=== PATIENT | female | born 1970 | race Caucasian/White ===

== ENCOUNTER 2016-04-15 19:29 | Inpatient (IN) | payer MEDICAID ==
[~2016-04-15] VITALS: Ht 165.1 cm; Wt 53.8 kg
[2016-04-15 19:31] VITALS: BP 122/90; PULSE 123; RESP 20; TEMP 100; O2SAT 98
--- NOTE | 2016-04-15 20:59 | PD ---
HPI Chief Complaint: GI Complaint Time Seen by Provider: 20:47 Travel History International Travel<30 days: No Contact w/Intl Traveler<30days: No Traveled to known affect area: No History of Present Illness HPI 45-year-old female came to the emergency room with history of fever, chills, vomiting and diarrhea that has been going on for past couple days. Patient has been taking Tylenol and ibuprofen. She is unable to hold anything down and says her whole body hurts. No known sick contacts. She has not received a flu vaccine this year. She claims to be otherwise healthy. She smokes cigarettes. Patient had a temperature of 100 and heart rate of 125 in triage. She seems in moderate distress and lethargic. PFSH Past Medical History Narrative Medical List of her past medical history is reviewed from the nursing note. Anxiety: Yes Depression: Yes Cancer: No Cardiovascular Problems: No Diminished Hearing: No Endocrine: No Genitourinary: Yes (UTI and STD in the past) Immune Disorder: No Musculoskeletal: No Neurologic: No Respiratory: No Immunizations Current: Yes Tetanus Vaccination: < 5 Years Influenza Vaccination: No ?: Not : 4 Para: 3 Miscarriage: 1 Past Surgical History Section: Yes (X4) Gynecologic Surgery: Yes (C- SECTIONS) Hysterectomy: Yes Pacemaker: No Other Surgery: Yes Social History Alcohol Use: Yes (OCC) Tobacco Use: Yes (1PPD) Substance Use: No Allergies-Medications (Allergen,Severity, Reaction): Coded Allergies: Penicillin (Verified Allergy, Severe, "My mother stated I swelled up and couldn't breathe", 04/15/16) Comments List of her allergies reviewed from the nursing note. Reported Meds & Prescriptions Reported Meds & Active Scripts Active Ibuprofen 400 Mg Tab 400 Mg PO Q8H PRN Narrative Medication List of her home medications reviewed from the nursing note. Review of Systems Except as stated in HPI: all other systems reviewed are Neg Physical Exam Narrative GENERAL: Lethargic, moderate distress SKIN: Warm and dry. HEAD: Atraumatic. Normocephalic. EYES: Pupils equal and round. No scleral icterus. No injection or drainage. ENT: No nasal bleeding or discharge. Dry mucous members NECK: Trachea midline. No JVD. CARDIOVASCULAR: Regular rate and rhythm. Tachycardia. No murmur appreciated. RESPIRATORY: No accessory muscle use. Clear to auscultation. Breath sounds equal bilaterally. GASTROINTESTINAL: Abdomen soft, non-tender, nondistended. Hepatic and splenic margins not palpable. MUSCULOSKELETAL: No obvious deformities. No clubbing. No cyanosis. No edema. NEUROLOGICAL: Somnolent. No obvious cranial nerve deficits. Motor grossly within normal limits. Normal speech. PSYCHIATRIC: Appropriate mood and affect; insight and judgment normal. Data Data Last Documented VS Vital Signs Date Time Temp Pulse Resp B/P Pulse Ox O2 Delivery O2 Flow Rate FiO2 04/15/16 23:06 100 18 120/75 97 Room Air 04/15/16 21:48 99.0 Orders Complete Blood Count With Diff (04/15/16 21:06) Comprehensive Metabolic Panel (04/15/16 21:06) Lactic Acid Sepsis Protocol (04/15/16 21:06) Urinalysis - C+S If Indicated (04/15/16 21:06) Influenzae A/B Antigen (04/15/16 21:06) Blood Culture (04/15/16 21:06) Chest, Single Ap (04/15/16 21:06) Blood Glucose (04/15/16 21:06) Ecg Monitoring (04/15/16 21:06) Iv Access Insert/Monitor (04/15/16 21:06) Oximetry (04/15/16 21:06) Oxygen Administration (04/15/16 21:06) Sodium Chlor 0.9% 1000 Ml Inj (Ns 1000 M (04/15/16 21:06) Sodium Chlor 0.9% 1000 Ml Inj (Ns 1000 M (04/15/16 21:06) Aztreonam Inj (Azactam Inj) (04/15/16 22:15) Vancomycin Inj (Vancomycin Inj) (04/15/16 22:15) Ct Abd/Pel W/O Iv Contrast (04/15/16 ) Potassium Chlor 20 Meq Premix (Kcl 20 Me (04/15/16 23:00) Admit To Inpatient (04/15/16 ) Vital Signs (Adult) Q4H (04/15/16 23:11) Activity Oob With Assistance (04/15/16 23:11) ^ Territory Manager General Sales / Telemetry .CONTINUOUS (04/15/16 23:11) Diet Heart Healthy (04/16/16 Breakfast) Sodium Chloride 0.9% Flush (Ns Flush) (04/15/16 23:15) Sodium Chloride 0.9% Flush (Ns Flush) (04/16/16 09:00) Comprehensive Metabolic Panel (04/16/16 06:00) Complete Blood Count With Diff (04/16/16 06:00) Case Management Consult (04/15/16 23:11) Naloxone Inj (Narcan Inj) (04/15/16 23:15) Inpatient Certification (04/15/16 ) Admit Order (Ed Use Only) (04/15/16 23:19) Levofloxacin 750 Mg Premix Inj (Levaquin (04/16/16 00:00) Metronidazole 500 Mg Inj (Flagyl 500 Mg (04/16/16 00:00) Labs Laboratory Tests Test 04/15/16 04/15/16 20:35 22:35 White Blood Count 1.4 TH/MM3 Red Blood Count 3.80 MIL/MM3 Hemoglobin 14.0 GM/DL Hematocrit 41.6 % Mean Corpuscular Volume 109.5 FL Mean Corpuscular Hemoglobin 36.8 PG Mean Corpuscular Hemoglobin 33.6 % Concent Red Cell Distribution Width 19.0 % Platelet Count 114 TH/MM3 Mean Platelet Volume 7.1 FL Neutrophils (%) (Auto) 54.8 % Lymphocytes (%) (Auto) 42.0 % Monocytes (%) (Auto) 2.5 % Eosinophils (%) (Auto) 0.3 % Basophils (%) (Auto) 0.4 % Neutrophils # (Auto) 0.8 TH/MM3 Lymphocytes # (Auto) 0.6 TH/MM3 Monocytes # (Auto) 0.0 TH/MM3 Eosinophils # (Auto) 0.0 TH/MM3 Basophils # (Auto) 0.0 TH/MM3 CBC Comment AUTO DIFF Differential Total Cells 100 Counted Neutrophils % (Manual) 52 % Band Neutrophils % 12 % Lymphocytes % 35 % Monocytes % 1 % Neutrophils # (Manual) 0.9 TH/MM3 Differential Comment FINAL DIFF MANUAL Platelet Estimate LOW Platelet Morphology Comment NORMAL Urine Color ELIAS Urine Turbidity CLEAR Urine pH 6.0 Urine Specific [place] GREATER THAN 1.035 Urine Protein 100 mg/dL Urine Glucose (UA) NEG mg/dL Urine Ketones NEG mg/dL Urine Occult Blood MOD Urine Nitrite NEG Urine Bilirubin NEG Urine Leukocyte Esterase TRACE Urine RBC 3-5 /hpf Urine WBC 0-2 /hpf Urine Squamous Epithelial 0-5 /hpf Cells Urine Bacteria NONE /hpf Microscopic Urinalysis Comment CULT NOT INDICATED Lactic Acid Level 1.4 mmol/L Sodium Level 133 MEQ/L Potassium Level 3.0 MEQ/L Chloride Level 98 MEQ/L Carbon Dioxide Level 25.5 MEQ/L Anion Gap 10 MEQ/L Blood Urea Nitrogen 9 MG/DL Creatinine 0.47 MG/DL Estimat Glomerular Filtration 145 ML/MIN Rate Random Glucose 111 MG/DL Calcium Level 8.1 MG/DL Total Bilirubin 0.6 MG/DL Aspartate Amino Transf 36 U/L (AST/SGOT) Alanine Aminotransferase 35 U/L (ALT/SGPT) Alkaline Phosphatase 40 U/L Total Protein 7.0 GM/DL Albumin 2.8 GM/DL [facility] Medical Decision Making Medical Screen Exam Complete: Yes Emergency Medical Condition: Yes Medical Record Reviewed: Yes Differential Diagnosis Sepsis, influenza, dehydration, pneumonia, UTI Narrative Course 10:49 PM blood test results of back and patient has significant leukopenia with ANC of 770. Her platelet count is depressed to some extent as well. When compared to her previous labs these seem to be new changes. Chest x-rays within normal limit and her urine analysis seemed normal as well. Patient was started on sepsis protocol for fluid and antibiotics. Patient has low potassium and I will replace that with IV potassium. Patient requires admission. Rest of her chemistry is still pending. Critical Care Narrative Aggregate critical care time was 45 minutes. Time to perform other separately billable procedures was not included in the critical care time. My time did not include minutes spent treating any other patients simultaneously or on activities that did not directly contribute to the patient's treatment. The services I provided to this patient were to treat and/or prevent clinically significant deterioration that could result in: Sepsis, sepsis protocol, dehydration, leukopenia I provided critical care services requiring my management, as noted below: Chart data review, documentation time, medication orders and management, vital sign assessments/reviewing monitor data, ordering and reviewing lab tests, ordering and interpreting/reviewing x-rays and diagnostic studies, care of the patient and discussion of the patient with the admitting physicians. Procedures EKG Prior to Arrival: No Sepsis Criteria SIRS Criteria (2 or more): Heart rate over 90, WBC > 22211, < 4000 or > 10% bands Diagnosis Primary Impression: Sepsis Qualified Code: A41.9 - Sepsis, due to unspecified organism Additional Impressions: Leukopenia Qualified Code: D72.819 - Leukopenia, unspecified type Fever Qualified Code: R50.9 - Fever, unspecified fever cause Dehydration Admitting Information Admitting Physician Requests: Admit Referrals: Primary Care Physician 1 week Scripts Ibuprofen 400 Mg Dax103 Mg PO Q8H PRN (pain) #20 TAB Ref 0 Prov:Lauren Wright MD 04/15/16 Lauren Wright MD Apr 15, 2016 20:59
[2016-04-15] MEDS ORDERED: SODIUM CHLOR 0.9% 1000 ML INJ 1,000 ML IV ONE (21:06)
[2016-04-15] MEDS ORDERED: SODIUM CHLOR 0.9% 1000 ML INJ 800 ML IV ONE (21:06)
[2016-04-15 21:09] VITALS: RESP 18; O2SAT 98
[2016-04-15 21:48] VITALS: BP 116/79; PULSE 105; RESP 18; TEMP 99; O2SAT 100
[2016-04-15 21:48] LABS: GLUCOSE,URINE NEG (NEG); KETONE, URINE NEG (NEG); NITRITE,URINE NEG (NEG)
[2016-04-15 21:52] LABS: AUTOMATED NEUTROPHIL # 0.8 TH/MM3 (1.8-7.7); BASOPHIL % 0.4 % (0.0-2.0); EOSINOPHIL % 0.3 % (0.0-4.0); HEMATOCRIT 41.6 % (35.0-46.0); LYMPHOCYTE # 0.6 TH/MM3 (1.0-4.8); MEAN CELL VOLUME 109.5 FL (80.0-100.0); MEAN CORPUSCULAR HEMOGLOBIN 36.8 PG (27.0-34.0); MEAN CORPUSCULAR HGB CONC 33.6 % (32.0-36.0); MONO % 2.5 % (0.0-8.0); NEUT % 54.8 % (16.0-70.0); PLATELET COUNT 114 TH/MM3 (150-450); WHITE BLOOD COUNT 1.4 TH/MM3 (4.0-11.0)
[2016-04-15] MEDS ORDERED: IBUP400T20 PO (21:52)
[2016-04-15 21:53] LABS: HEMO FLAGS AUTO DIFF
[2016-04-15 21:57] LABS: BLOOD, URINE MOD (NEG)
[2016-04-15 21:58] LABS: COMMENT (UR) CULT NOT INDICATED; CULTURE IF INDICATED CULT NOT INDICATED; SQUAMOUS EPITHELIAL CELL URINE 0-5 /hpf (0-5); URINE COLOR AMBER (YELLW/STRAW); WBC, URINE 0-2 /hpf (0-5)
--- NOTE | 2016-04-15 22:03 | RADHPO ---
EXAM DATE/TIME: 04/15/2016 21:55 [facility] COMPARISON: No previous studies available for comparison. INDICATIONS : Cough, chest discomfort for 2 days MEDICAL HISTORY : None. SURGICAL HISTORY : None. ENCOUNTER: Initial ACUITY: 2 days PAIN SCORE: 0/10 LOCATION: Bilateral chest FINDINGS: A single view of the chest demonstrates the lungs to be symmetrically aerated without evidence of mas s, infiltrate or effusion. The cardiomediastinal contours are unremarkable. Osseous structures are intact. CONCLUSION: No acute disease. Mike Bustillo MD on April 15, 2016 at 22:01 Board Certified Radiologist. This report was verified electronically.
[2016-04-15 22:10] LABS: BANDS 12 % (0-6); NEUTROPHIL # MANUAL DIFF 0.9 TH/MM3 (1.8-7.7); POLYS (SEG NEUTROPHILS) 52 % (16-70); WBC DIFF SAMPLE 100
[2016-04-15 22:11] LABS: PLATELET ESTIMATE SMEAR LOW (NORMAL); PLATELET MORPHOLOGY NORMAL (NORMAL); SCAN/DIFF FINAL DIFF MANUAL
[2016-04-15] MEDS ORDERED: VANCOMYCIN INJ 1,000 MG in SODIUM CHLOR 0.9% 250 ML INJ 250 ML IV ONE (22:15)
[2016-04-15] MEDS ORDERED: AZTREONAM INJ 2,000 MG in SODIUM CHLORIDE 0.9% INJ 100 ML IV ONE (22:15)
--- NOTE | 2016-04-15 22:36 | RADHPO ---
EXAM DATE/TIME: 04/15/2016 22:16 [facility] COMPARISON: CT ABDOMEN & PELVIS W/O CONTRAST, April 22, 2015, 13:33. INDICATIONS : Vomiting, diarrhea and abdominal pain. ORAL CONTRAST: No oral contrast ingested. RADIATION DOSE: 6.38 CTDIvol (mGy) MEDICAL HISTORY : Gallbladder disease. SURGICAL HISTORY : section. Hysterectomy. ENCOUNTER: Initial ACUITY: 2 days PAIN SCALE: 7/10 LOCATION: Bilateral lower quadrant TECHNIQUE: Volumetric scanning of the abdomen and pelvis was performed. Using automated exposure control and ad justment of the mA and/or kV according to patient size, radiation dose was kept as low as reasonably achievable to obtain optimal diagnostic quality images. FINDINGS: LOWER LUNGS: The visualized lower lungs are clear. LIVER: Homogeneous density without lesion. There is no dilation of the biliary tree. No calcified gallston es. SPLEEN: Normal size without lesion. PANCREAS: Within normal limits. KIDNEYS: Normal in size and shape. There is no mass, stone, or hydronephrosis. ADRENAL GLANDS: Within normal limits. VASCULAR: There is no aortic aneurysm. BOWEL/MESENTERY: There is wall thickening of the colon more notable involving the ascending transverse and portions of descending colon.. No perforation or abscess.. There is no free intraperitoneal air or fluid. ABDOMINAL WALL: Within normal limits. RETROPERITONEUM: There is no lymphadenopathy. BLADDER: No wall thickening or mass. REPRODUCTIVE: Within normal limits. INGUINAL: There is no lymphadenopathy or hernia. MUSCULOSKELETAL: Within normal limits for patient age. CONCLUSION: 1. Wall thickening of portions of the colon which can be seen with colitis. No perforation or abscess . 2. No renal calculi or hydronephrosis. Mike Bustillo MD on April 15, 2016 at 22:32 Board Certified Radiologist. This report was verified electronically.
[2016-04-15 22:47] LABS: CHLORIDE 98 MEQ/L (98-107); SODIUM (NA) 133 MEQ/L (136-145)
[2016-04-15 22:51] LABS: ANION GAP 10 MEQ/L (5-15); BICARBONATE 25.5 MEQ/L (21.0-32.0); BLOOD UREA NITROGEN 9 MG/DL (7-18)
[2016-04-15 22:54] LABS: ALT (GPT) 35 U/L (10-53); AST (GOT) 36 U/L (15-37); GLOMERULAR FILTRATION RATE 145 ML/MIN (>89)
[2016-04-15 22:56] LABS: TOTAL BILIRUBIN ADULT 0.6 MG/DL (0.2-1.0)
[2016-04-15 22:57] LABS: ALKALINE PHOSPHATASE 40 U/L (45-117)
[2016-04-15] MEDS ORDERED: POTASSIUM CHLOR 20 MEQ PREMIX 100 ML IV ONE (23:00)
[2016-04-15 23:06] VITALS: BP 120/75; PULSE 100; RESP 18; O2SAT 97
[2016-04-15] MEDS ORDERED: SODIUM CHLORIDE 0.9% FLUSH 5 ML FLUSH FLUSH PRN (23:15)
[2016-04-15] MEDS ORDERED: NALOXONE HCL 0.4 MG/ML AMP IV PRN (23:15)
[2016-04-16] VITALS (23 sets, daily range): BP systolic 103–141; BP diastolic 61–91; PULSE 80–99; RESP 12–38; TEMP 97.7–99; O2SAT 98–100
[2016-04-16] MEDS ORDERED: LEVOFLOXACIN 750 MG PREMIX INJ 150 ML IV SCH
[2016-04-16] MEDS: metroNIDAZOLE 500 MG INJ 100 ML IV SCH ×4 (02:19→17:40)
[2016-04-16 05:29] LABS: AUTOMATED NEUTROPHIL # 0.5 TH/MM3 (1.8-7.7); EOSINOPHIL % 0.5 % (0.0-4.0); HEMATOCRIT 34.6 % (35.0-46.0); LYMPH % 47.8 % (9.0-44.0); LYMPHOCYTE # 0.6 TH/MM3 (1.0-4.8); MEAN CELL VOLUME 109.3 FL (80.0-100.0); MEAN CORPUSCULAR HEMOGLOBIN 36.8 PG (27.0-34.0); MEAN CORPUSCULAR HGB CONC 33.7 % (32.0-36.0); MONO % 3.1 % (0.0-8.0); NEUT % 47.6 % (16.0-70.0); PLATELET COUNT 99 TH/MM3 (150-450); RED BLOOD COUNT 3.17 MIL/MM3 (4.00-5.30); RED CELL DISTRIBUTION WIDTH 18.9 % (11.6-17.2); WHITE BLOOD COUNT 1.1 TH/MM3 (4.0-11.0)
[2016-04-16] MEDS: ACETAMINOPHEN/HYDROcodone 325 MG/5 MG TAB PO PRN ×2 (05:29→17:27)
[2016-04-16 05:32] LABS: HEMO FLAGS AUTO DIFF
[2016-04-16 05:45] LABS: CHLORIDE 102 MEQ/L (98-107); POTASSIUM 3.2 MEQ/L (3.5-5.1); SODIUM (NA) 136 MEQ/L (136-145)
[2016-04-16 05:49] LABS: ANION GAP 10 MEQ/L (5-15); BICARBONATE 23.6 MEQ/L (21.0-32.0); BLOOD UREA NITROGEN 9 MG/DL (7-18)
[2016-04-16 05:52] LABS: ALT (GPT) 31 U/L (10-53); AST (GOT) 33 U/L (15-37); GLOMERULAR FILTRATION RATE 156 ML/MIN (>89)
[2016-04-16 05:53] LABS: TOTAL BILIRUBIN ADULT 0.5 MG/DL (0.2-1.0)
[2016-04-16 05:54] LABS: BANDS 17 % (0-6); NEUTROPHIL # MANUAL DIFF 0.6 TH/MM3 (1.8-7.7); OVALOCYTES 1+ (NORMAL); PLATELET ESTIMATE SMEAR LOW (NORMAL); PLATELET MORPHOLOGY NORMAL (NORMAL); POLYS (SEG NEUTROPHILS) 41 % (16-70); SCAN/DIFF FINAL DIFF MANUAL; WBC DIFF SAMPLE 100
[2016-04-16 05:55] LABS: ALKALINE PHOSPHATASE 36 U/L (45-117)
[2016-04-16] MEDS ORDERED: Vancomycin Consult Pharmacy 1 EA OTHER SCH (11:00)
--- NOTE | 2016-04-16 11:06 | HHI.HP ---
[facility] Service [facility] Primary Care Physician No Primary Care Physician Admission Diagnosis sepsis, leukopenia, fever, dehydration Diagnoses: Chief Complaint: Weight loss and diarrhea and subjective fever Travel History International Travel<30 Days: No Contact w/Intl Traveler <30 Da: No Traveled to Known Affected Are: No Sepsis Criteria SIRS Criteria (2 or more): Heart rate over 90, WBC > 98697, < 4000 or > 10% bands Severe Sepsis (+one): Hypotension Criteria Outcome: Meets sepsis criteria History of Present Illness Patient is a 45-year-old female with a history which is rather unremarkable. She does come to the hospital with subjective fevers and chills. About 4 days of nausea and vomiting and loose watery stools. The patient is came on suddenly and was associated with chills and weakness. She doesn't recall eating anything particular but noted that her stool was quite watery and had turned green. She tried Pepto-Bismol without any relief. She came to the emergency room for further evaluation noted now to be pancytopenic and tachycardic. There are signs and symptoms of sepsis and her CT abdomen pelvis which was the emergency room does show colitis. Patient denies any intestinal troubles in the past without sick contacts and reports about a 20 pound weight loss over the last several months. For these reasons the patient has been admitted to the hospital. She required quite a bit IV resuscitation and her blood pressure and heart rate improved. She was started on IV antibiotics. Review of Systems Constitutional: DENIES: Diaphoretic episodes, Fatigue, Fever, Weight gain, Weight loss, Chills, Dizziness, Change in appetite, Night Sweats Endocrine: DENIES: Abnorml menstrual pattern, Heat/cold intolerance, Polydipsia , Polyuria, Polyphagia Eyes: DENIES: Blurred vision, Diplopia, Eye inflammation, Eye pain, Vision loss , Photosensitivity, Double Vision Ears, nose, mouth, throat: DENIES: Tinnitus, Hearing loss, Vertigo, Nasal discharge, Oral lesions, Throat pain, Hoarseness, Ear Pain, Running Nose, Epistaxis, Sinus Pain, Toothache, Odynophagia Respiratory: DENIES: Apneas, Cough, Snoring, Wheezing, Hemoptysis, Sputum production, Shortness of breath Cardiovascular: DENIES: Chest pain, Palpitations, Syncope, Dyspnea on Exertion , PND, Lower Extremity Edema, Orthopnea, Claudication Gastrointestinal: COMPLAINS OF: Abdominal pain, Diarrhea, Nausea, Vomiting, DENIES: Black stools, Bloody stools, Constipation, Difficulty Swallowing, Anorexia Genitourinary: DENIES: Abnormal vaginal bleeding, Dysmenorrhea, Dyspareunia, Sexual dysfunction, Urinary frequency, Urinary incontinence, Urgency, Hematuria , Dysuria, Nocturia, Vaginal discharge Musculoskeletal: DENIES: Joint pain, Muscle aches, Stiffness, Joint Swelling, Back pain, Neck pain Integumentary: DENIES: Abnormal pigmentation, Pruritus, Rash, Nail changes, Breast masses, Breast skin changes, Nipple discharge Hematologic/lymphatic: DENIES: Bruising, Lymphadenopathy Immunologic/allergic: DENIES: Eczema, Urticaria Neurologic: DENIES: Abnormal gait, Headache, Localized weakness, Paresthesias, Seizures, Speech Problems, Tremor, Poor Balance Psychiatric: DENIES: Anxiety, Confusion, Mood changes, Depression, Hallucinations, Agitation, Suicidal Ideation, Homicidal Ideation, Delusions Past Family Social History Past Medical History denies Blood transfusion, remote IVD Past Surgical History C/S x4 Hysterectomy Reported Medications none Allergies: Coded Allergies: Penicillin (Verified Allergy, Severe, "My mother stated I swelled up and couldn't breathe", 04/15/16) Active Ordered Medications Reviewed and the medical record Family History Unknown patient is adopted Social History Patient smokes a pack a day, no alcohol, unemployed but previously worked in the [employer], no recent travel Physical Exam Vital Signs Vital Signs Date Time Temp Pulse Resp B/P Pulse Ox O2 Delivery O2 Flow Rate FiO2 04/16/16 10:00 92 04/16/16 10:00 84 13 103/64 100 04/16/16 09:00 88 04/16/16 09:00 92 38 129/76 98 04/16/16 08:00 97.7 88 29 113/75 100 04/16/16 08:00 90 04/16/16 07:22 99.0 86 18 104/61 100 Room Air 04/16/16 06:22 18 04/16/16 06:10 86 18 117/80 99 Room Air 04/16/16 06:10 18 04/16/16 04:01 18 04/16/16 04:01 95 18 115/75 100 Room Air 04/16/16 03:03 91 18 130/83 98 Room Air 04/16/16 01:51 18 04/16/16 01:51 96 18 121/82 98 Room Air 04/16/16 00:16 94 18 118/78 99 Room Air 04/15/16 23:06 100 18 120/75 97 Room Air 04/15/16 23:06 18 04/15/16 21:48 99.0 105 18 116/79 100 Room Air 04/15/16 21:09 98 Room Air 04/15/16 21:09 18 98 Room Air 04/15/16 20:48 18 04/15/16 19:31 100.0 123 20 122/90 98 Physical Exam GENERAL: This is a cachectic, well-developed patient, complaining of diarrhea SKIN: No rashes, ecchymoses or lesions. Cool and dry. HEAD: Atraumatic. Normocephalic. No temporal or scalp tenderness. EYES: Pupils equal round and reactive. Extraocular motions intact. No scleral icterus. No injection or drainage. ENT: Nose without bleeding, purulent drainage or septal hematoma. Throat without erythema, tonsillar hypertrophy or exudate. Uvula midline. Airway patent. NECK: Trachea midline. No JVD or lymphadenopathy. Supple, nontender, no meningeal signs. CARDIOVASCULAR: Regular rate and rhythm without murmurs, gallops, or rubs. RESPIRATORY: Clear to auscultation. Breath sounds equal bilaterally. No wheezes , rales, or rhonchi. GASTROINTESTINAL: Abdomen soft, non-tender, nondistended. No hepato-splenomegaly , or palpable masses. No guarding. MUSCULOSKELETAL: Extremities without clubbing, cyanosis, or edema. No joint tenderness, effusion, or edema noted. No calf tenderness. Negative Homans sign bilaterally. NEUROLOGICAL: Awake and alert. Cranial nerves II through XII intact. Motor and sensory grossly within normal limits. Five out of 5 muscle strength in all muscle groups. Normal speech. Laboratory Laboratory Tests Test 04/15/16 04/15/16 04/16/16 20:35 22:35 05:17 White Blood Count 1.4 1.1 Red Blood Count 3.80 3.17 Hemoglobin 14.0 11.7 Hematocrit 41.6 34.6 Mean Corpuscular Volume 109.5 109.3 Mean Corpuscular Hemoglobin 36.8 36.8 Mean Corpuscular Hemoglobin 33.6 33.7 Concent Red Cell Distribution Width 19.0 18.9 Platelet Count 114 99 Mean Platelet Volume 7.1 6.8 Neutrophils (%) (Auto) 54.8 47.6 Lymphocytes (%) (Auto) 42.0 47.8 Monocytes (%) (Auto) 2.5 3.1 Eosinophils (%) (Auto) 0.3 0.5 Basophils (%) (Auto) 0.4 1.0 Neutrophils # (Auto) 0.8 0.5 Lymphocytes # (Auto) 0.6 0.6 Monocytes # (Auto) 0.0 0.0 Eosinophils # (Auto) 0.0 0.0 Basophils # (Auto) 0.0 0.0 CBC Comment AUTO DIFF AUTO DIFF Differential Total Cells 100 100 Counted Neutrophils % (Manual) 52 41 Band Neutrophils % 12 17 Lymphocytes % 35 39 Monocytes % 1 3 Neutrophils # (Manual) 0.9 0.6 Differential Comment FINAL DIFF FINAL DIFF MANUAL MANUAL Platelet Estimate LOW LOW Platelet Morphology Comment NORMAL NORMAL Urine Color ELIAS Urine Turbidity CLEAR Urine pH 6.0 Urine Specific [place] GREATER THAN 1.035 Urine Protein 100 Urine Glucose (UA) NEG Urine Ketones NEG Urine Occult Blood MOD Urine Nitrite NEG Urine Bilirubin NEG Urine Leukocyte Esterase TRACE Urine RBC 3-5 Urine WBC 0-2 Urine Squamous Epithelial 0-5 Cells Urine Bacteria NONE Microscopic Urinalysis Comment CULT NOT INDICATED Lactic Acid Level 1.4 Sodium Level 133 136 Potassium Level 3.0 3.2 Chloride Level 98 102 Carbon Dioxide Level 25.5 23.6 Anion Gap 10 10 Blood Urea Nitrogen 9 9 Creatinine 0.47 0.44 Estimat Glomerular Filtration 145 156 Rate Random Glucose 111 107 Calcium Level 8.1 7.7 Total Bilirubin 0.6 0.5 Aspartate Amino Transf 36 33 (AST/SGOT) Alanine Aminotransferase 35 31 (ALT/SGPT) Alkaline Phosphatase 40 36 Total Protein 7.0 6.2 Albumin 2.8 2.5 Ovalocytes 1+ Date/Time Procedure Status Source Growth 04/15/16 20:40 Aerobic Blood Culture Received Blood Peripheral Pending 04/15/16 20:40 Anaerobic Blood Culture Received Blood Peripheral Pending 04/15/16 20:35 Influenza Types A,B Antigen ([facility]) - Final Complete Nasal Aspirate NEGATIVE FOR FLU A AND B ANTIGEN.... Result Diagram: 04/16/16 0517 04/16/16 0517 Imaging Last Impressions Chest X-Ray 04/15/16 2106 Signed Impressions: Service Date/Time: Friday, April 15, 2016 21:55 - CONCLUSION: No acute disease. Mike Bustillo MD Abdomen/Pelvis CT 04/15/16 0000 Signed Impressions: Service Date/Time: Friday, April 15, 2016 22:16 - CONCLUSION: 1. Wall thickening of portions of the colon which can be seen with colitis. No perforation or abscess. 2. No renal calculi or hydronephrosis. Mike Bustillo MD Septic Shock Reassessment Heart: Regular rate and rhythm Lungs: Clear Skin: Warm Peripheral Pulses: Bounding Right Radial Bounding Left Radial Bounding Right Popliteal Bounding Left Popliteal Bounding Right Dorsalis Pedis Bounding Left Dorsalis Pedis Bounding Right Posterior Tibial Bounding Left Posterior Tibial Assessment and Plan Problem List: (1) Sepsis ICD Code: A41.9 Status: Acute Plan: from colitis? BC pending urine neg CXR neg (2) Colitis ICD Code: K52.9 Status: Acute Plan: Continue with Levaquin and Flagyl, will add vancomycin due to neutropenia Colitis on CT scan Stool studies pending (3) Pancytopenia ICD Code: D61.818 Status: Acute Plan: hiv pending neutropenic precautions d/w paitent Assessment and Plan Plan of care to determine by Hospital course Code Status Full code Discussed Condition With Patient, CONSTRUCTION CONSULTANT Physician Certification 2 Midnight Certification Type: Admission for Inpatient Services Order for Inpatient Services The services are ordered in accordance with Medicare regulations or non- Medicare payer requirements, as applicable. In the case of services not specified as inpatient-only, they are appropriately provided as inpatient services in accordance with the 2-midnight benchmark. Estimated LOS (days): 4 4 days is the estimated time the patient will need to remain in the hospital, assuming treatment plan goals are met and no additional complications. Post-Hospital Plan: Home Problem Qualifiers (1) Sepsis: Qualified Code: A41.9 - Sepsis, due to unspecified organism Nieves Mejia MD Apr 16, 2016 11:06
[2016-04-16] MEDS: SODIUM CHLOR 0.9% 1000 ML INJ 1,000 ML IV SCH ×2 (11:27→22:29)
[2016-04-16] MEDS: SODIUM CHLORIDE 0.9% FLUSH 5 ML FLUSH FLUSH SCH ×2 (11:28→21:24)
[2016-04-16] MEDS ORDERED: POTASSIUM PHOSPHATE INJ 30 MMOL in SODIUM CHLOR 0.9% 250 ML INJ 250 ML IV ONE (12:00)
[2016-04-16] MEDS ORDERED: VANCOMYCIN INJ 1,000 MG in SODIUM CHLOR 0.9% 250 ML INJ 250 ML IV SCH (12:00)
[2016-04-16] MEDS ORDERED: CHLORHEXIDINE GLUCONATE 2 % 1 PACK (2 CLOTHS)(extra cloths) TOP PRN (13:45)
[2016-04-16 16:44] LABS: C. DIFF EPI 027 PRESUMPTIVE NEGATIVE (NEGATIVE); C. DIFF TOXIN PCR NEGATIVE (NEGATIVE)
[2016-04-16] MEDS ORDERED: TEMAZEPAM 7.5 MG CAP PO ONE (22:15)
[2016-04-17] VITALS (18 sets, daily range): BP systolic 104–147; BP diastolic 64–91; PULSE 71–98; RESP 11–33; TEMP 97.5–98.9; O2SAT 97–100
[2016-04-17] MEDS: metroNIDAZOLE 500 MG INJ 100 ML IV SCH ×5 (00:08→23:54)
[2016-04-17] MEDS: VANCOMYCIN INJ 1,000 MG in SODIUM CHLOR 0.9% 250 ML INJ 250 ML IV SCH ×3 (01:40→20:18)
[2016-04-17] MEDS: ACETAMINOPHEN/HYDROcodone 325 MG/5 MG TAB PO PRN ×3 (02:09→19:46)
[2016-04-17] MEDS: LEVOFLOXACIN 750 MG PREMIX INJ 150 ML IV SCH (03:11)
[2016-04-17] MEDS: CHLORHEXIDINE GLUCONATE 2 % 1 PACK (2 CLOTHS)(taper/protocol) TOP SCH (03:13)
[2016-04-17 04:42] LABS: AUTOMATED NEUTROPHIL # 0.7 TH/MM3 (1.8-7.7); BASOPHIL % 0.8 % (0.0-2.0); EOSINOPHIL % 1.5 % (0.0-4.0); HEMATOCRIT 32.5 % (35.0-46.0); LYMPH % 45.7 % (9.0-44.0); LYMPHOCYTE # 0.7 TH/MM3 (1.0-4.8); MEAN CELL VOLUME 109.7 FL (80.0-100.0); MEAN CORPUSCULAR HEMOGLOBIN 36.7 PG (27.0-34.0); MEAN CORPUSCULAR HGB CONC 33.5 % (32.0-36.0); MONO % 4.9 % (0.0-8.0); NEUT % 47.1 % (16.0-70.0); PLATELET COUNT 109 TH/MM3 (150-450); RED BLOOD COUNT 2.96 MIL/MM3 (4.00-5.30); RED CELL DISTRIBUTION WIDTH 19.5 % (11.6-17.2); WHITE BLOOD COUNT 1.5 TH/MM3 (4.0-11.0)
[2016-04-17 04:48] LABS: HEMO FLAGS AUTO DIFF; POTASSIUM 3.3 MEQ/L (3.5-5.1)
[2016-04-17 04:52] LABS: BICARBONATE 24.4 MEQ/L (21.0-32.0); MAGNESIUM 2.3 MG/DL (1.5-2.5)
[2016-04-17 05:08] LABS: BANDS 6 % (0-6); EOSINOPHILS 1 % (0-4); NEUTROPHIL # MANUAL DIFF 0.8 TH/MM3 (1.8-7.7); POLYS (SEG NEUTROPHILS) 47 % (16-70); WBC DIFF SAMPLE 100
[2016-04-17 05:09] LABS: OVALOCYTES 1+ (NORMAL); PLATELET ESTIMATE SMEAR LOW (NORMAL); PLATELET MORPHOLOGY NORMAL (NORMAL); SCAN/DIFF FINAL DIFF MANUAL
[2016-04-17] MEDS: SODIUM CHLORIDE 0.9% FLUSH 5 ML FLUSH FLUSH SCH ×2 (09:30→19:48)
[2016-04-17] MEDS: SODIUM CHLOR 0.9% 1000 ML INJ 1,000 ML IV SCH (09:31)
[2016-04-17] MEDS ORDERED: INFLUENZA VIRUS VACCINE (QUADRIVALENT) 0.5 ML SYR IM ONE (10:00)
[2016-04-17] MEDS ORDERED: POTASSIUM PHOSPHATE INJ 30 MMOL in SODIUM CHLOR 0.9% 250 ML INJ 250 ML IV ONE (10:00)
[2016-04-17] MEDS ORDERED: PHARMACY ORDERED LAB XX ONE (11:45)
--- NOTE | 2016-04-17 11:49 | HHI.PR ---
Subjective Remarks Patient seen and evaluated today in follow-up for colitis. Stool cultures, blood cultures are negative. HIV is negative. Patient very tearful over psychosocial issues. Discussed with JANITOR Objective Vitals Vital Signs Date Time Temp Pulse Resp B/P Pulse Ox O2 Delivery O2 Flow Rate FiO2 04/17/16 08:00 78 14 127/78 98 04/17/16 08:00 82 04/17/16 07:00 98.4 86 11 132/81 98 04/17/16 07:00 86 04/17/16 06:10 80 27 119/69 100 04/17/16 06:00 81 04/17/16 05:10 86 12 114/68 98 04/17/16 05:00 71 04/17/16 04:00 98.3 90 31 106/64 100 04/17/16 04:00 77 04/17/16 03:09 17 04/17/16 03:00 84 13 113/76 100 04/17/16 03:00 81 04/17/16 02:09 86 23 132/86 100 04/17/16 02:00 86 04/17/16 01:00 98 04/17/16 00:00 98.4 90 16 147/81 100 04/17/16 00:00 96 04/16/16 23:11 90 25 127/81 100 04/16/16 23:00 87 04/16/16 22:00 84 14 127/79 100 04/16/16 22:00 99 04/16/16 21:00 80 21 112/69 100 04/16/16 21:00 83 04/16/16 20:00 98.5 80 27 118/74 100 04/16/16 20:00 81 04/16/16 19:00 84 34 141/86 04/16/16 19:00 87 04/16/16 18:00 86 12 135/91 100 04/16/16 18:00 86 04/16/16 17:00 90 15 112/74 100 04/16/16 16:00 90 04/16/16 16:00 98.0 90 16 127/89 100 04/16/16 15:00 90 27 108/70 100 04/16/16 14:00 88 17 109/73 100 04/16/16 14:00 88 04/16/16 13:00 88 04/16/16 13:00 88 17 122/74 100 04/16/16 12:00 84 04/16/16 12:00 98.9 84 15 110/72 100 I/O 04/16/16 04/16/16 04/16/16 04/17/16 04/17/16 04/17/16 07:00 15:00 23:00 07:00 15:00 23:00 Intake Total 2350 ml 100 ml 3253 ml 1590 ml Output Total 1500 ml 700 ml Balance 2350 ml 100 ml 1753 ml 890 ml Intake Oral 1320 ml 720 ml IV Total 2350 ml 100 ml 1933 ml 870 ml Output Stool Total 1500 ml 700 ml # Voids 1 9 4 1 # Bowel Movements 6 1 Result Diagram: 04/17/1642104/17/16421 Imaging Last Impressions Chest X-Ray 04/15/162105 Signed Impressions: Service Date/Time: Friday, April 15, 2016 21:55 - CONCLUSION: No acute disease. Mike Bustillo MD Abdomen/Pelvis CT 04/15/16 0000 Signed Impressions: Service Date/Time: Friday, April 15, 2016 22:16 - CONCLUSION: 1. Wall thickening of portions of the colon which can be seen with colitis. No perforation or abscess. 2. No renal calculi or hydronephrosis. Mike Bustillo MD Objective Remarks GENERAL: This is a thin, well-developed patient, in no apparent distress. CARDIOVASCULAR: Regular rate and rhythm without murmurs, gallops, or rubs. RESPIRATORY: Clear to auscultation. Breath sounds equal bilaterally. No wheezes , rales, or rhonchi. GASTROINTESTINAL: Abdomen soft, non-tender, nondistended. Normal active bowel sounds MUSCULOSKELETAL: Extremities without clubbing, cyanosis, or edema. NEURO: Alert & Oriented x4 to person, place, time, situation. Moves all ext x4 A/P Problem List: (1) Sepsis ICD Code: A41.9 Status: Acute Plan: from colitis? BC neg urine neg CXR neg (2) Colitis Status: Acute Plan: Continue with Levaquin and Flagyl, will add vancomycin due to neutropenia Colitis on CT scan Stool studies negative so far, some leukocytosis Patient will need outpatient endoscopy once inflammation is improved (3) Pancytopenia ICD Code: D61.818 Status: Acute Plan: hiv negative neutropenic precautions d/w patient if no improvement will consult id Assessment and Plan reg diet med surg bed Discharge Planning when counts better Problem Qualifiers (1) Sepsis: Qualified Code: A41.9 - Sepsis, due to unspecified organism Nieves Mejia MD Apr 17, 2016 11:49
[2016-04-18] VITALS (7 sets, daily range): BP systolic 114–149; BP diastolic 67–86; PULSE 16–82; RESP 12–22; TEMP 97.5–98.9; O2SAT 98–100
[2016-04-18] MEDS ORDERED: diphenhydrAMINE HCL 25 MG CAP PO PRN (00:15)
[2016-04-18] MEDS: CHLORHEXIDINE GLUCONATE 2 % 1 PACK (2 CLOTHS)(taper/protocol) TOP SCH (03:32)
[2016-04-18] MEDS: LEVOFLOXACIN 750 MG PREMIX INJ 150 ML IV SCH (03:32)
[2016-04-18] MEDS: metroNIDAZOLE 500 MG INJ 100 ML IV SCH (05:19)
[2016-04-18] MEDS: VANCOMYCIN INJ 1,000 MG in SODIUM CHLOR 0.9% 250 ML INJ 250 ML IV SCH (05:19)
[2016-04-18 09:16] LABS: AUTOMATED NEUTROPHIL # 0.8 TH/MM3 (1.8-7.7); BASOPHIL % 1.9 % (0.0-2.0); EOSINOPHIL % 1.4 % (0.0-4.0); HEMATOCRIT 34.4 % (35.0-46.0); LYMPH % 48.5 % (9.0-44.0); LYMPHOCYTE # 1.1 TH/MM3 (1.0-4.8); MEAN CELL VOLUME 110.2 FL (80.0-100.0); MEAN CORPUSCULAR HEMOGLOBIN 37.1 PG (27.0-34.0); MEAN CORPUSCULAR HGB CONC 33.7 % (32.0-36.0); MONO % 8.5 % (0.0-8.0); NEUT % 39.7 % (16.0-70.0); PLATELET COUNT 146 TH/MM3 (150-450); RED BLOOD COUNT 3.12 MIL/MM3 (4.00-5.30); RED CELL DISTRIBUTION WIDTH 19.1 % (11.6-17.2); WHITE BLOOD COUNT 2.1 TH/MM3 (4.0-11.0)
[2016-04-18 09:28] LABS: HEMO FLAGS AUTO DIFF
[2016-04-18] MEDS: SODIUM CHLORIDE 0.9% FLUSH 5 ML FLUSH FLUSH SCH ×2 (09:53→20:32)
[2016-04-18] MEDS: SULFAMETHOXAZOLE-TRIMETHOPRIM DS 800-160 MG TAB PO SCH ×2 (09:53→20:31)
[2016-04-18 10:01] LABS: BANDS 8 % (0-6); BASOPHILS 1 % (0-2); EOSINOPHILS 1 % (0-4); NEUTROPHIL # MANUAL DIFF 0.7 TH/MM3 (1.8-7.7); POLYS (SEG NEUTROPHILS) 27 % (16-70); WBC DIFF SAMPLE 100
[2016-04-18 10:02] LABS: OVALOCYTES 1+ (NORMAL); PLATELET ESTIMATE SMEAR LOW (NORMAL); PLATELET MORPHOLOGY NORMAL (NORMAL); ROULEAUX PRESENT (NORMAL); SCAN/DIFF FINAL DIFF MANUAL
[2016-04-18] MEDS: ACETAMINOPHEN/HYDROcodone 325 MG/5 MG TAB PO PRN ×2 (13:25→20:31)
--- NOTE | 2016-04-18 14:48 | HHI.PR ---
Subjective Remarks Patient seen today in follow-up for salmonellosis. Leukopenia improved. Stool more formed. Patient complaining of buttocks pain but is more ambulatory today Objective Vitals Vital Signs Date Time Temp Pulse Resp B/P Pulse Ox O2 Delivery O2 Flow Rate FiO2 04/18/16 12:00 77 04/18/16 11:28 98.5 80 12 114/67 100 04/18/16 09:42 97.9 76 14 130/77 100 04/18/16 04:00 97.5 79 16 125/75 100 04/18/16 00:00 98.1 82 18 125/70 98 04/17/16 20:00 97.5 80 24 117/79 100 04/17/16 16:00 98.4 79 14 109/76 97 I/O 04/17/16 04/17/16 04/17/16 04/18/16 04/18/16 04/18/16 07:00 15:00 23:00 07:00 15:00 23:00 Intake Total 1590 ml 2526 ml 319 ml Output Total 700 ml 1 ml Balance 890 ml 2526 ml 318 ml Intake Oral 720 ml 1200 ml 60 ml IV Total 870 ml 1326 ml 259 ml Output Stool Total 700 ml 1 ml # Voids 4 1 7 3 # Bowel Movements 1 7 2 Result Diagram: 04/18/16 0847 04/17/16 0422 Objective Remarks GENERAL: This is a thin, well-developed patient, in no apparent distress. CARDIOVASCULAR: Regular rate and rhythm without murmurs, gallops, or rubs. RESPIRATORY: Clear to auscultation. Breath sounds equal bilaterally. No wheezes , rales, or rhonchi. GASTROINTESTINAL: Abdomen soft, non-tender, nondistended. Normal active bowel sounds MUSCULOSKELETAL: Extremities without clubbing, cyanosis, or edema. NEURO: Alert & Oriented x4 to person, place, time, situation. Moves all ext x4 A/P Problem List: (1) Sepsis ICD Code: A41.9 Status: Acute Plan: from salmonellosis Continue Bactrim Improved (2) Pancytopenia ICD Code: D61.818 Status: Acute Plan: Improving hiv negative neutropenic precautions d/w patient Assessment and Plan add heating pad Discharge Planning when counts better Problem Qualifiers (1) Sepsis: Qualified Code: A41.9 - Sepsis, due to unspecified organism Nieves Mejia MD Apr 18, 2016 14:48
[2016-04-18] MEDS: diphenhydrAMINE HCL 50 MG CAP PO PRN (20:31)
[2016-04-18] MEDS ORDERED: PHARMACY ORDERED LAB XX ONE (21:45)
[2016-04-19 01:24] VITALS: BP 104/69; PULSE 74; RESP 12; TEMP 98.5; O2SAT 99
[2016-04-19] MEDS: CHLORHEXIDINE GLUCONATE 2 % 1 PACK (2 CLOTHS)(taper/protocol) TOP SCH (04:00)
[2016-04-19] MEDS: ACETAMINOPHEN/HYDROcodone 325 MG/5 MG TAB PO PRN ×3 (06:27→17:16)
[2016-04-19 08:00] VITALS: BP 109/82; PULSE 85; RESP 20; TEMP 96.6; O2SAT 99
[2016-04-19 09:24] LABS: AUTOMATED NEUTROPHIL # 1.2 TH/MM3 (1.8-7.7); BASOPHIL % 0.4 % (0.0-2.0); EOSINOPHIL # 0.1 TH/MM3 (0-0.4); EOSINOPHIL % 1.9 % (0.0-4.0); HEMATOCRIT 33.8 % (35.0-46.0); LYMPH % 46.1 % (9.0-44.0); LYMPHOCYTE # 1.3 TH/MM3 (1.0-4.8); MEAN CORPUSCULAR HEMOGLOBIN 37.8 PG (27.0-34.0); MEAN CORPUSCULAR HGB CONC 34.7 % (32.0-36.0); MONO % 10.6 % (0.0-8.0); PLATELET COUNT 174 TH/MM3 (150-450); RED CELL DISTRIBUTION WIDTH 18.8 % (11.6-17.2); WHITE BLOOD COUNT 2.9 TH/MM3 (4.0-11.0)
[2016-04-19 09:37] LABS: HEMO FLAGS AUTO DIFF
[2016-04-19] MEDS: SULFAMETHOXAZOLE-TRIMETHOPRIM DS 800-160 MG TAB PO SCH ×2 (09:44→21:37)
[2016-04-19] MEDS: SODIUM CHLORIDE 0.9% FLUSH 5 ML FLUSH FLUSH SCH ×2 (09:45→21:37)
[2016-04-19 10:04] LABS: POTASSIUM 3.7 MEQ/L (3.5-5.1)
[2016-04-19 10:09] LABS: BICARBONATE 25.8 MEQ/L (21.0-32.0)
[2016-04-19 10:21] LABS: BANDS 6 % (0-6); EOSINOPHILS 2 % (0-4); NEUTROPHIL # MANUAL DIFF 1.2 TH/MM3 (1.8-7.7); POLYS (SEG NEUTROPHILS) 34 % (16-70); WBC DIFF SAMPLE 100
[2016-04-19 10:22] LABS: OVALOCYTES 1+ (NORMAL); PLATELET ESTIMATE SMEAR NORMAL (NORMAL); PLATELET MORPHOLOGY NORMAL (NORMAL); ROULEAUX PRESENT (NORMAL); SCAN/DIFF AUTO DIFF CONFIRMED
--- NOTE | 2016-04-19 10:36 | HHI.PR ---
Subjective Remarks Follow-up for sepsis from salmonella, pancytopenia. Patient admits to abdominal pain radiating to the back states it is a 7/10 mostly over the back currently, and indicates need for more frequent pain medication. She denies any vomiting. States her stool is more formed than before and dark brown, no blood. Denies any fevers. Objective Vitals Vital Signs Date Time Temp Pulse Resp B/P Pulse Ox O2 Delivery O2 Flow Rate FiO2 04/19/16 08:00 96.6 85 20 109/82 99 04/19/16 07:34 18 04/19/16 01:24 98.5 74 12 104/69 99 04/18/16 20:00 98.9 78 22 149/86 100 04/18/16 16:45 98.1 16 12 121/68 99 04/18/16 12:00 77 04/18/16 11:28 98.5 80 12 114/67 100 I/O 04/18/16 04/18/16 04/18/16 04/19/16 04/19/16 04/19/16 07:00 15:00 23:00 07:00 15:00 23:00 Intake Total 319 ml 1230 ml Output Total 1 ml Balance 318 ml 1230 ml Intake Oral 60 ml 1110 ml IV Total 259 ml 120 ml Output Stool Total 1 ml # Voids 3 6 # Bowel Movements 2 8 Result Diagram: 04/19/1682704/19/16827 Objective Remarks GENERAL: Thin patient in no apparent distress. SKIN: Warm and dry. CARDIOVASCULAR: Regular rate and rhythm. RESPIRATORY: No accessory muscle use. Clear to auscultation. Breath sounds equal bilaterally. GASTROINTESTINAL: Normoactive bowel sounds 4. Abdomen soft, nondistended. Generalized abdominal tenderness, worse over the epigastric region. BACK: No tenderness over the lower thoracic back. NEUROLOGICAL: Awake and alert. Motor grossly within normal limits. Normal speech. PSYCHIATRIC: Appropriate mood and affect; insight and judgment normal. Urinary Catheter: No Vascular Central Line Catheter: No A/P Problem List: (1) Sepsis ICD Code: A41.9 Status: Acute (2) Salmonellosis ICD Code: A02.9 Status: Acute (3) Pancytopenia ICD Code: D61.818 Status: Acute (4) Elevated lipase ICD Code: R74.8 Status: Acute Assessment and Plan (1) Sepsis Improved Due to salmonellosis Continue Bactrim (2) Pancytopenia Improving HIV negative Neutropenic precautions Monitor CBC (3) Elevated lipase level, possible pancreatitis Mild elevation at 459 and patient has epigastric pain radiating to the back. Although CT scan revealed no pancreatic abnormalities, she may have mild pancreatitis. Patient is eating 100% of meals. Start Low-fat diet. Continue [place]. Will increase frequency from every 6 to every 4 hours, but will avoid parenteral medication due to a history of IVDU per H&P. Repeat lipase level in the am. Discussed with Dr. Mejia, attending. Problem Qualifiers (1) Sepsis: Qualified Code: A41.9 - Sepsis, due to unspecified organism Layla Tineo Apr 19, 2016 10:36
[2016-04-19 11:57] VITALS: BP 133/82; PULSE 80; RESP 20; TEMP 98.1; O2SAT 100
[2016-04-19 16:00] VITALS: BP 128/85; PULSE 98; RESP 20; TEMP 96.5; O2SAT 99
[2016-04-19] MEDS: NICOTINE 14 MG/24 HR PATCH TD SCH (17:45)
[2016-04-19 20:00] VITALS: BP 135/89; PULSE 90; RESP 18; TEMP 96.6; O2SAT 96
[2016-04-19] MEDS: diphenhydrAMINE HCL 50 MG CAP PO PRN (23:30)
[2016-04-20] VITALS: BP 125/86; PULSE 84; RESP 20; TEMP 97.4; O2SAT 98
[2016-04-20 04:00] VITALS: BP 121/78; PULSE 80; RESP 16; TEMP 96.9; O2SAT 99
[2016-04-20] MEDS: CHLORHEXIDINE GLUCONATE 2 % 1 PACK (2 CLOTHS)(taper/protocol) TOP SCH (04:00)
[2016-04-20 08:00] VITALS: BP 113/80; PULSE 89; RESP 16; TEMP 98.2; O2SAT 98
[2016-04-20] MEDS: SULFAMETHOXAZOLE-TRIMETHOPRIM DS 800-160 MG TAB PO SCH (08:04)
[2016-04-20] MEDS: ACETAMINOPHEN/HYDROcodone 325 MG/5 MG TAB PO PRN (08:04)
[2016-04-20] MEDS: NICOTINE 14 MG/24 HR PATCH TD SCH (08:05)
[2016-04-20] MEDS: SODIUM CHLORIDE 0.9% FLUSH 5 ML FLUSH FLUSH SCH (08:08)
[2016-04-20 08:25] LABS: AUTOMATED NEUTROPHIL # 1.9 TH/MM3 (1.8-7.7); BASOPHIL % 0.6 % (0.0-2.0); EOSINOPHIL # 0.1 TH/MM3 (0-0.4); EOSINOPHIL % 1.7 % (0.0-4.0); HEMATOCRIT 36.2 % (35.0-46.0); LYMPH % 47.4 % (9.0-44.0); LYMPHOCYTE # 2.1 TH/MM3 (1.0-4.8); MEAN CELL VOLUME 109.2 FL (80.0-100.0); MEAN CORPUSCULAR HEMOGLOBIN 37.6 PG (27.0-34.0); MEAN CORPUSCULAR HGB CONC 34.4 % (32.0-36.0); NEUT % 43.3 % (16.0-70.0); PLATELET COUNT 177 TH/MM3 (150-450); RED BLOOD COUNT 3.32 MIL/MM3 (4.00-5.30); RED CELL DISTRIBUTION WIDTH 19.3 % (11.6-17.2); WHITE BLOOD COUNT 4.4 TH/MM3 (4.0-11.0)
[2016-04-20 08:37] LABS: HEMO FLAGS AUTO DIFF
[2016-04-20] MEDS ORDERED: REMOVE OLD NICODERM (NICOTINE) PATCH TD SCH (09:00)
[2016-04-20 09:09] LABS: SCAN/DIFF AUTO DIFF CONFIRMED
--- NOTE | 2016-04-20 10:57 | HHI.DCPOC ---
Discharge Care Plan Diagnosis: (1) Salmonellosis (2) Pancytopenia Goals to Promote Your Health * To prevent worsening of your condition and complications * To maintain your health at the optimal level Directions to Meet Your Goals Take your medications as prescribed Follow your dietary instruction Follow activity as directed Keep your appointments as scheduled Take your immunizations and boosters as scheduled If your symptoms worsen call your PCP, if no PCP go to Urgent Care Center or Emergency Room Smoking is Dangerous to Your Health. Avoid second hand smoke Call the 24-hour hour crisis hotline for domestic abuse at Nieves Mejia MD Apr 20, 2016 10:57
[2016-04-20] MEDS ORDERED: BACT800T5 PO (10:59)
[2016-04-20] MEDS ORDERED: HYDR-3516 PO (11:00)
--- NOTE | 2016-04-20 11:02 | HHI.DS ---
Discharge Summary Admission Date Apr 15, 2016 at 23:20 Discharge Date: Apr 20, 2016 Admitting Diagnosis sepsis, leukopenia, fever, dehydration (1) Sepsis ICD Code: A41.9 (2) Salmonellosis ICD Code: A02.9 (3) Pancytopenia ICD Code: D61.818 (4) Elevated lipase ICD Code: R74.8 Procedures none Brief History - From Admission Patient is a 45-year-old female with a history which is rather unremarkable. She does come to the hospital with subjective fevers and chills. About 4 days of nausea and vomiting and loose watery stools. The patient is came on suddenly and was associated with chills and weakness. She doesn't recall eating anything particular but noted that her stool was quite watery and had turned green. She tried Pepto-Bismol without any relief. She came to the emergency room for further evaluation noted now to be pancytopenic and tachycardic. There are signs and symptoms of sepsis and her CT abdomen pelvis which was the emergency room does show colitis. Patient denies any intestinal troubles in the past without sick contacts and reports about a 20 pound weight loss over the last several months. For these reasons the patient has been admitted to the hospital. She required quite a bit IV resuscitation and her blood pressure and heart rate improved. She was started on IV antibiotics. CBC/BMP: 04/20/16 0800 04/19/16 0828 Significant Findings Laboratory Tests Test 04/17/16 04/18/16 04/19/16 04/20/16 12:52 08:47 08:28 08:00 Vancomycin Level Trough 2.7 MCG/ML (5.0-10.0) White Blood Count 2.1 TH/MM3 2.9 TH/MM3 (4.0-11.0) (4.0-11.0) Red Blood Count 3.12 MIL/MM3 3.10 MIL/MM3 3.32 MIL/MM3 (4.00-5.30) (4.00-5.30) (4.00-5.30) Hematocrit 34.4 % 33.8 % (35.0-46.0) (35.0-46.0) Mean Corpuscular Volume 110.2 FL 109.0 FL 109.2 FL (80.0-100.0) (80.0-100.0) (80.0-100.0) Mean Corpuscular Hemoglobin 37.1 PG 37.8 PG 37.6 PG (27.0-34.0) (27.0-34.0) (27.0-34.0) Red Cell Distribution Width 19.1 % 18.8 % 19.3 % (11.6-17.2) (11.6-17.2) (11.6-17.2) Platelet Count 146 TH/MM3 (150-450) Lymphocytes (%) (Auto) 48.5 % 46.1 % 47.4 % (9.0-44.0) (9.0-44.0) (9.0-44.0) Monocytes (%) (Auto) 8.5 % (0.0-8.0) 10.6 % (0.0-8.0) Neutrophils # (Auto) 0.8 TH/MM3 1.2 TH/MM3 (1.8-7.7) (1.8-7.7) Band Neutrophils % 8 % (0-6) Lymphocytes % 55 % (9-44) 51 % (9-44) Neutrophils # (Manual) 0.7 TH/MM3 1.2 TH/MM3 (1.8-7.7) (1.8-7.7) Platelet Estimate LOW (NORMAL) Basophilic Stippling MOD (NORMAL) FAINT (NORMAL) Ovalocytes 1+ (NORMAL) 1+ (NORMAL) Rouleau PRESENT PRESENT (NORMAL) (NORMAL) Blood Urea Nitrogen 6 MG/DL (7-18) Random Glucose 108 MG/DL (74-106) Calcium Level 7.7 MG/DL (8.5-10.1) Lipase 459 U/L 481 U/L (73-393) (73-393) Mean Platelet Volume 6.6 FL (7.0-11.0) Imaging Last Impressions Chest X-Ray 04/15/16 5675 Signed Impressions: Service Date/Time: Friday, April 15, 2016 21:55 - CONCLUSION: No acute disease. Mike Bustillo MD Abdomen/Pelvis CT 04/15/16 0000 Signed Impressions: Service Date/Time: Friday, April 15, 2016 22:16 - CONCLUSION: 1. Wall thickening of portions of the colon which can be seen with colitis. No perforation or abscess. 2. No renal calculi or hydronephrosis. Mike Bustillo MD PE at Discharge GENERAL: Thin patient in no apparent distress. SKIN: Warm and dry. CARDIOVASCULAR: Regular rate and rhythm. RESPIRATORY: No accessory muscle use. Clear to auscultation. Breath sounds equal bilaterally. GASTROINTESTINAL: Normoactive bowel sounds 4. Abdomen soft, nondistended. Generalized abdominal tenderness, worse over the epigastric region. BACK: No tenderness over the lower thoracic back. NEUROLOGICAL: Awake and alert. Motor grossly within normal limits. Normal speech. PSYCHIATRIC: Appropriate mood and affect; insight and judgment normal. Pt update on day of discharge Patient seen today in follow-up for discharge planning. Doing better. Abdominal pain is resolved. Tolerating current antibiotics. Counts are improved. Discharge plans discussed with her she is agreeable Hospital Course Patient is a 45-year-old female with minimal past medical history but did come to the hospital for abdominal pain. She does have colitis and salmonellosis. Patient's treated for same. She also was leukopenic and neutropenic. This resolved with medical treatment of her medical issues. Workup was negative otherwise. Patient had some mild abdominal discomfort with elevated lipase however this improved clinically and the patient had only mild elevation her lipase. Pt Condition on Discharge: Good Discharge Disposition: Discharge Home Discharge Time: > 30 minutes Discharge Instructions DIET: Follow Instructions for: As Tolerated, No Restrictions Activities you can perform: Regular-No Restrictions New Medications: Hydrocodone-Acetaminophen (Hydrocodone-Acetaminophen) 5-325 mg Tab 1 TAB PO Q4H PRN pain >5 #20 TAB Sulfamethoxazole-Trimethoprim (Bactrim DS) 800-160 Mg Tab 1 TAB PO Q12HR Infection #10 TAB Discontinued Medications: Ibuprofen (Ibuprofen) 400 Mg Tab 400 MG PO Q8H PRN pain #20 Ref 0 TAB Nieves Mejia MD Apr 20, 2016 11:02
== END 2016-04-20 12:21 | disposition home or self-care (01) | DRG 872 ==
LOC: PHED 19:29 → PHEDA 23:20 → PHEDH 04-16 03:20 → PHICU 04-16 07:45 → PH3A 04-18 23:00
PROVIDERS: ADMIT Hospitalist; ATTEND Hospitalist
DX: A02.1 Salmonella sepsis (principal); D61.818 Other pancytopenia; Z68.1 Body mass index [BMI] 19.9 or less, adult; A02.0 Salmonella enteritis; K52.9 Noninfective gastroenteritis and colitis, unspecified; E86.0 Dehydration; R63.4 Abnormal weight loss; R74.8 Abnormal levels of other serum enzymes; F17.210 Nicotine dependence, cigarettes, uncomplicated; F32.9 Major depressive disorder, single episode, unspecified; F41.9 Anxiety disorder, unspecified; Z88.0 Allergy status to penicillin; Z23 Encounter for immunization
CPT/HCPCS: 71010; 74176; 80048; 80053; 80202; 81001; 83605; 83690; 83735; 85007; 85025; 85027; 86703; 87040; 87205; 87328; 87329; 87493; 87506; 87641; 87804; 90471; 90686; 96361; 96365; G0008; J1956; J3370; J3480; J7030; J7050; Q0163; Q2038

== ENCOUNTER 2016-08-12 11:29 | Emergency (ER) | payer MEDICAID ==
[~2016-08-12] VITALS: Ht 165.1 cm; Wt 59.0 kg
[~2016-08-12 11:29] MED LIST: BACT800T5 PO; HYDR-3516 PO
[2016-08-12 11:32] VITALS: BP 139/102; PULSE 97; RESP 16; TEMP 98.4; O2SAT 99
--- NOTE | 2016-08-12 12:13 | PD ---
HPI Chief Complaint: Skin Problem Time Seen by Provider: 11:40 Travel History International Travel<30 days: No Contact w/Intl Traveler<30days: No Traveled to known affect area: No History of Present Illness HPI 46-year-old female presents to the emergency room for evaluation of 2 itchy bumps on the top of her scalp that have been present for the past year. Patient states they flares up occasionally. She states the only thing that relieves her itchiness is Benadryl and ice. She also applies topical cortisone cream and her friend's Bactroban ointment. She has been to a database development project manager multiple times and had steroid injections but was unhappy because the symptoms persisted. She is requesting to see infectious disease specialist and/or a referral to [facility] or [facility]. She states her symptoms started one year ago when she bumped her head on a nest and she has had flares ever since. She states that this causes her extreme anxiety and she looses sleep. She has been to multiple people and believes that it is infected. She reports chills but no objective fevers. Denies chronic medical conditions or being on any medications. PFSH Past Medical History Anxiety: Yes Depression: Yes Cancer: No Cardiovascular Problems: No Diabetes: No Diminished Hearing: No Endocrine: No Gastrointestinal Disorders: Yes GERD: No Genitourinary: No Immune Disorder: No Musculoskeletal: No Neurologic: No Psychiatric: No Reproductive: No Respiratory: No Immunizations Current: Yes Thyroid Disease: No Ulcer: No ?: Not : 4 Para: 3 Miscarriage: 1 Past Surgical History Section: Yes (X4) Genitourinary Surgery: Yes (CHOLEYCYSTECTOMY) Gynecologic Surgery: Yes (C-SECTIONS X4, PARTIAL HYSTERECTOMY) Hysterectomy: Yes Pacemaker: No Other Surgery: Yes Social History Alcohol Use: Yes (OCC) Tobacco Use: No (FORMER) Substance Use: No Allergies-Medications (Allergen,Severity, Reaction): Coded Allergies: Penicillin (Verified Allergy, Severe, "My mother stated I swelled up and couldn't breathe", 08/12/16) Reported Meds & Prescriptions Reported Meds & Active Scripts Active Vistaril (Hydroxyzine Pamoate) 50 Mg Cap 50 Mg PO Q8HR Review of Systems Except as stated in HPI: all other systems reviewed are Neg Physical Exam Narrative GENERAL: Well-nourished, well-developed female in no acute distress. Afebrile. Ambulatory. SKIN: Focused skin assessment warm/dry. There is a 3 mm skin color maculopapular lesion on the top of the patient's scalp. There is no erythema, edema, drainage, slight excoriation. It is not tender. HEAD: Normocephalic. EYES: No scleral icterus. No injection or drainage. NECK: Supple, trachea midline. No JVD or lymphadenopathy. CARDIOVASCULAR: Regular rate and rhythm without murmurs, gallops, or rubs. RESPIRATORY: Breath sounds equal bilaterally. No accessory muscle use. MUSCULOSKELETAL: No cyanosis, or edema. Data Data Last Documented VS Vital Signs Date Time Temp Pulse Resp B/P Pulse Ox O2 Delivery O2 Flow Rate FiO2 08/12/16 11:32 98.4 97 16 139/102 99 MDM Medical Decision Making Medical Screen Exam Complete: Yes Emergency Medical Condition: Yes Medical Record Reviewed: Yes Differential Diagnosis Abrasion versus abscess versus mole versus psoriasis Narrative Course 46-year-old female presents to the emergency room for evaluation of an itchy lesion to the top of her scalp for the past year. She states intermittently flares up. She has been to a database development project manager for was unhappy with the results of treatment. Patient is requesting to see infectious disease specialist for referral to a tertiary hospital for her lesions. Vital signs stable. Physical exam reveals a 3 mm skin color maculopapular lesion on the top of the patient's scalp. There is no erythema, edema, drainage but there is slight excoriation. It is not tender. Patient goes on to say that the hair surrounding the area is typing element machine operator in color and shows a picture on her phone to prove this. The lightness in color is due to the lighting of the picture. Upon physical exam, there is no change in her hair color. Patient then discusses that her job began to perform surveillance on her and eventually fired her because of this lesion. I suspect underlying psychological etiology. Patient was reassured there is no evidence of infection in that she does not need to be seen by infectious disease specialist, admitted, or sent to a tertiary care center. She was told to follow up with a database development project manager for excision of the lesion as it causes her so much distress. She was given Vistaril in the meantime for itchiness and anxiety and told to return to the ER for worsening symptoms. She understands and agrees to plan. Diagnosis Primary Impression: Skin lesion Referrals: [facility] Reconciliation Manager Primary Care Physician Patient Instructions: General Instructions Additional Instructions: Rest and drink plenty of fluids. Take Vistaril as directed, as needed for itchiness and anxiety. Follow-up with a database development project manager. Return to the emergency room for worsening symptoms. Med/Other Pt SpecificInfo: Prescription(s) given Scripts Hydroxyzine Pamoate (Vistaril)50 Mg Cap50 Mg PO Q8HR #21 CAP Ref 0 Prov:Lauren Wright MD 08/12/16 Disposition: 01 DISCHARGE HOME Condition: Stable Khushi Mohamud August 12, 2016 12:13
[2016-08-12] MEDS ORDERED: VIST50CA PO (12:14)
== END 2016-08-12 12:24 | disposition home or self-care (01) ==
LOC: PHEFT 11:29
DX: L98.9 Disorder of the skin and subcutaneous tissue, unspecified (principal); L29.9 Pruritus, unspecified; F41.9 Anxiety disorder, unspecified; F32.9 Major depressive disorder, single episode, unspecified; Z88.0 Allergy status to penicillin; Z87.891 Personal history of nicotine dependence
CPT/HCPCS: 99283

== ENCOUNTER 2016-10-13 12:27 | Emergency (ER) | payer MEDICAID ==
[~2016-10-13] VITALS: Ht 165.1 cm; Wt 59.4 kg
[~2016-10-13 12:27] MED LIST changes: -BACT800T5 PO; -HYDR-3516 PO; +VIST50CA PO
[2016-10-13 12:30] VITALS: BP 133/85; PULSE 100; RESP 16; TEMP 98.1; O2SAT 100
[2016-10-13 13:41] LABS: BLOOD, URINE NEG (NEG); GLUCOSE,URINE NEG (NEG); KETONE, URINE NEG (NEG); NITRITE,URINE NEG (NEG)
--- NOTE | 2016-10-13 13:47 | PD ---
HPI Chief Complaint: Mechanical Manufacturing Technician Problem/Complaint Time Seen by Provider: 13:23 Travel History International Travel<30 days: No Contact w/Intl Traveler<30days: No Traveled to known affect area: No History of Present Illness HPI C/O 4 DAYS OF YELLOW GREEN VAG DISCHARGE, STATES MONOGAMOUS UNPROTECTED INTERCOURSE, I ADVISED THAT SHE ALSO GO TO HEALTH DEPT OR HER PCP FOR HIV AND HEP B/C TESTING WELL.... PFSH Past Medical History Anxiety: Yes Depression: Yes Cancer: No Cardiovascular Problems: No Diabetes: No Diminished Hearing: No Endocrine: No Gastrointestinal Disorders: Yes GERD: No Genitourinary: No Immune Disorder: No Musculoskeletal: No Neurologic: No Psychiatric: No Reproductive: No Respiratory: No Immunizations Current: Yes Thyroid Disease: No Ulcer: No ?: Not : 4 Para: 3 Miscarriage: 1 Past Surgical History Section: Yes (X4) Genitourinary Surgery: Yes (CHOLEYCYSTECTOMY) Gynecologic Surgery: Yes (C-SECTIONS X4, PARTIAL HYSTERECTOMY) Hysterectomy: Yes Pacemaker: No Other Surgery: Yes Social History Alcohol Use: Yes (OCC) Tobacco Use: No (FORMER) Substance Use: No Allergies-Medications (Allergen,Severity, Reaction): Coded Allergies: Penicillin (Verified Allergy, Severe, "My mother stated I swelled up and couldn't breathe", 10/13/16) Reported Meds & Prescriptions Reported Meds & Active Scripts Active Zofran Odt (Ondansetron Odt) 4 Mg Tab 4 Mg SL Q6HR PRN Ultram (Tramadol HCl) 50 Mg Tab 50 Mg PO Q4H PRN Diflucan (Fluconazole) 150 Mg Tab 150 Mg PO ONCE Ciprofloxacin (Ciprofloxacin HCl) 500 Mg Tab 500 Mg PO BID Review of Systems Except as stated in HPI: all other systems reviewed are Neg Gastrointestinal: Positive: Abdominal Pain Genitourinary: Positive: Pelvic Pain, Discharge Physical Exam Narrative GENERAL: SKIN: Warm and dry. HEAD: Atraumatic. Normocephalic. EYES: Pupils equal and round. No scleral icterus. No injection or drainage. ENT: No nasal bleeding or discharge. Mucous membranes pink and moist. NECK: Trachea midline. No JVD. CARDIOVASCULAR: Regular rate and rhythm. RESPIRATORY: No accessory muscle use. Clear to auscultation. Breath sounds equal bilaterally. GASTROINTESTINAL: Abdomen soft, MILD SUPRAPUBIC tender, nondistended. RN AT BEDSIDE REGULATORY AFFAIRS DIRECTOR: YELLOW/GREEN PURULENT DISCHARGE EXITING FROM OS, NO CMT,NO ADNEXAL MASSES PALPATED OR NOTED MUSCULOSKELETAL: Extremities without clubbing, cyanosis, or edema. No obvious deformities. NEUROLOGICAL: Awake and alert. No obvious cranial nerve deficits. Motor grossly within normal limits. Five out of 5 muscle strength in the arms and legs. Normal speech. PSYCHIATRIC: Appropriate mood and affect; insight and judgment normal. Data Data Last Documented VS Vital Signs Date Time Temp Pulse Resp B/P Pulse Ox O2 Delivery O2 Flow Rate FiO2 10/13/16 12:30 98.1 100 16 133/85 100 Orders Gc And Chlamydia Pcr (10/13/16 13:23) Wet Prep Profile (10/13/16 13:23) Urinalysis - C+S If Indicated (10/13/16 13:23) Ed Urine Pregnancytest Poc (10/13/16 13:23) Urine Culture (10/13/16 13:25) Azithromycin (Zithromax) (10/13/16 14:15) Levofloxacin (Levaquin) (10/13/16 14:15) Metronidazole (Flagyl) (10/13/16 14:15) Ondansetron Odt (Zofran Odt) (10/13/16 14:15) Labs Laboratory Tests Test 10/13/16 10/13/16 13:25 13:35 Urine Collection Type CLEAN CATCH Urine Color YELLOW Urine Turbidity CLEAR Urine pH 6.0 Urine Specific [place] 1.010 Urine Protein NEG mg/dL Urine Glucose (UA) NEG mg/dL Urine Ketones NEG mg/dL Urine Occult Blood NEG Urine Nitrite NEG Urine Bilirubin NEG Urine Leukocyte Esterase NEG Urine Bacteria MANY /hpf Microscopic Urinalysis Comment CULTURE INDICATED Clue Cells (Wet Prep) NONE SEEN Vaginal Trichomonas (Wet Prep) NONE SEEN Vaginal Yeast (Wet Prep) NONE SEEN Chlamydia trachomatis DNA NOT DETECTED (PCR) Neisseria gonorrhoeae DNA NOT DETECTED (PCR) MDM Medical Decision Making Medical Screen Exam Complete: Yes Emergency Medical Condition: Yes Medical Record Reviewed: Yes Differential Diagnosis GC V CHLAM V BACT VAGINITIS V Narrative Course PT EVALUATED AND WILL BE TREATED WITH ONE TIME STD COCKTAIL ABX TREATMENT ( LEVAQUIN, AZITHROMYCIN, FLAGYL AND ZOFRAN) GIVEN AND D/C ON DIFLUCAN Diagnosis Primary Impression: VAGINITIS Additional Impression: UTI Scripts Ondansetron Odt (Zofran Odt)4 Mg Tab4 Mg SL Q6HR PRN (Nausea/Vomiting) #12 TAB Prov:Manish Orozco MD 10/13/16 Tramadol (Ultram)50 Mg Tab50 Mg PO Q4H PRN (PAIN) #28 TAB Prov:Manish Orozco MD 10/13/16 Fluconazole (Diflucan)150 Mg Vxt542 Mg PO ONCE #1 TAB Ref 0 Prov:Manish Orozco MD 10/13/16 Ciprofloxacin 500 Mg Fqi210 Mg PO BID #14 TAB Prov:Manish Orozco MD 10/13/16 Disposition: 01 DISCHARGE HOME Condition: Stable Manish Orozco MD Oct 13, 2016 13:47
[2016-10-13 13:49] LABS: METHOD OF COLLECTION CLEAN CATCH; URINE COLOR YELLOW (YELLW/STRAW)
[2016-10-13 13:50] LABS: BACTERIA, URINE MANY /hpf; COMMENT (UR) CULTURE INDICATED; CULTURE IF INDICATED CULTURE INDICATED
[2016-10-13] MEDS ORDERED: ULTR50TA5 PO (14:10)
[2016-10-13] MEDS ORDERED: DIFL150T PO (14:10)
[2016-10-13] MEDS ORDERED: CIPR500T2 PO (14:10)
[2016-10-13] MEDS ORDERED: ZOFR4TAB3 SL (14:10)
[2016-10-13] MEDS ORDERED: ONDANSETRON ODT 4 MG TAB PO/SL ONE (14:15)
[2016-10-13] MEDS ORDERED: LEVOFLOXACIN 750 MG TAB PO ONE (14:15)
[2016-10-13] MEDS ORDERED: AZITHROMYCIN 250 MG TAB PO ONE (14:15)
[2016-10-13] MEDS ORDERED: metroNIDAZOLE 500 MG TAB PO ONE (14:15)
[2016-10-13 23:23] LABS: CHLAMYDIA PCR NOT DETECTED (NOT DETECT); NEISSERIA PCR NOT DETECTED (NOT DETECT)
== END 2016-10-13 14:43 | disposition home or self-care (01) ==
LOC: PHED 12:27
DX: N76.0 Acute vaginitis (principal); N39.0 Urinary tract infection, site not specified; B96.1 Klebsiella pneumoniae [K. pneumoniae] as the cause of diseases classified elsewhere
CPT/HCPCS: 81001; 84703; 87077; 87086; 87186; 87210; 87491; 87591; 99284

== ENCOUNTER 2016-12-19 20:17 | Emergency (ER) | payer MEDICAID ==
[~2016-12-19] VITALS: Ht 165.1 cm; Wt 61.1 kg
[~2016-12-19 20:17] MED LIST changes: +CIPR500T2 PO; +DIFL150T PO; +ULTR50TA5 PO; -VIST50CA PO; +ZOFR4TAB3 SL
[2016-12-19 20:28] VITALS: BP 153/90; PULSE 94; RESP 18; TEMP 98.2; O2SAT 99
--- NOTE | 2016-12-19 21:51 | PD ---
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 She states her boyfriend cheated on her. She does not have a primary care physician or product lead. She denies any nausea, vomiting or diarrhea. PFSH Past Medical History Anxiety: Yes Depression: Yes Cancer: No Cardiovascular Problems: No Diabetes: No Diminished Hearing: No Endocrine: No Gastrointestinal Disorders: Yes GERD: No Genitourinary: No Immune Disorder: No Musculoskeletal: No Neurologic: No Psychiatric: No Reproductive: No Respiratory: No Immunizations Current: Yes Thyroid Disease: No Ulcer: No ?: Not : 4 Para: 3 Miscarriage: 1 Past Surgical History Surgical History: No Previous Surgery Section: Yes (X4) Genitourinary Surgery: Yes (CHOLEYCYSTECTOMY) Gynecologic Surgery: Yes (C-SECTIONS X4, PARTIAL HYSTERECTOMY) Hysterectomy: Yes (partial) Pacemaker: No Other Surgery: Yes Social History Alcohol Use: Yes (OCC) Tobacco Use: No (FORMER) Substance Use: No Allergies-Medications (Allergen,Severity, Reaction): Coded Allergies: penicillin G (Unverified Allergy, Severe, "My mother stated I swelled up and couldn't breathe", 11/17/16) Reported Meds & Prescriptions Reported Meds & Active Scripts Active Vistaril (Hydroxyzine Pamoate) 25 Mg Cap 25 Mg PO Q6H PRN Ibuprofen 600 Mg Tab 600 Mg PO TID Review of Systems Except as stated in HPI: all other systems reviewed are Neg Physical Exam Narrative GENERAL: The patient is alert, oriented 3 in minimal apparent distress with her suprapubic discomfort. Her vital signs show blood pressure 153/90 but are otherwise normal. SKIN: Focused skin assessment warm/dry. HEAD: Atraumatic. Normocephalic. EYES: Pupils equal and round. No scleral icterus. No injection or drainage. ENT: No nasal bleeding or discharge. Mucous membranes pink and moist. NECK: Trachea midline. No JVD. CARDIOVASCULAR: Regular rate and rhythm. No murmur appreciated. RESPIRATORY: No accessory muscle use. Clear to auscultation. Breath sounds equal bilaterally. GASTROINTESTINAL: Abdomen soft, with minimal discomfort to direct palpation over the bilateral lower quadrants. The abdomen is nondistended. Hepatic and splenic margins not palpable. MUSCULOSKELETAL: No obvious deformities. No clubbing. No cyanosis. No edema. NEUROLOGICAL: Awake and alert. No obvious cranial nerve deficits. Motor grossly within normal limits. Normal speech. PSYCHIATRIC: Appropriate mood and affect; insight and judgment normal. GENITOURINARY: Normal external genitalia without lesions or erythema. Vaginal vault without blood but there is an off white, slightly foul-smelling drainage. Cervical os was closed with clear drainage. There is exquisite cervical motion tenderness. Uterus tender and nonenlarged. Bilateral adnexa tender without masses. Data Data Last Documented VS Vital Signs Date Time Temp Pulse Resp B/P (MAP) Pulse Ox O2 Delivery O2 Flow Rate FiO2 12/19/16 20:28 98.2 94 18 153/90 (111) 99 Orders Orders Beta Hcg (Quant/Titer) (12/19/16 21:52) Complete Blood Count With Diff (12/19/16 21:52) Basic Metabolic Panel (Bmp) (12/19/16 21:52) Gc And Chlamydia Pcr (12/19/16 21:52) Wet Prep Profile (12/19/16 21:52) Urinalysis - C+S If Indicated (12/19/16 21:52) Urine Culture (12/19/16 22:20) Ketorolac Inj (Toradol Inj) (12/20/16 00:15) Ceftriaxone Inj (Rocephin Inj) (12/20/16 00:15) Azithromycin Powd Pack (Zithromax Powd P (12/20/16 00:15) Labs Laboratory Tests Test 12/19/16 22:10 12/19/16 22:20 12/19/16 22:25 Clue Cells (Wet Prep) PRESENT Vaginal Trichomonas (Wet Prep) NONE SEEN Vaginal Yeast (Wet Prep) NONE SEEN Urine Color YELLOW Urine Turbidity SLIGHT Urine pH 6.5 Urine Specific [place] 1.014 Urine Protein NEG mg/dL Urine Glucose (UA) NEG mg/dL Urine Ketones NEG mg/dL Urine Occult Blood NEG Urine Nitrite POS Urine Bilirubin NEG Urine Leukocyte Esterase NEG Urine RBC 0-2 /hpf Urine WBC 0-2 /hpf Urine Squamous Epithelial Cells 6-8 /hpf Urine Bacteria MANY /hpf Microscopic Urinalysis Comment CULTURE INDICATED White Blood Count 6.0 TH/MM3 Red Blood Count 3.76 MIL/MM3 Hemoglobin 12.9 GM/DL Hematocrit 38.2 % Mean Corpuscular Volume 101.6 FL Mean Corpuscular Hemoglobin 34.3 PG Mean Corpuscular Hemoglobin Concent 33.8 % Red Cell Distribution Width 15.2 % Platelet Count 204 TH/MM3 Mean Platelet Volume 7.7 FL Neutrophils (%) (Auto) 38.7 % Lymphocytes (%) (Auto) 48.4 % Monocytes (%) (Auto) 6.9 % Eosinophils (%) (Auto) 3.9 % Basophils (%) (Auto) 2.1 % Neutrophils # (Auto) 2.3 TH/MM3 Lymphocytes # (Auto) 3.0 TH/MM3 Monocytes # (Auto) 0.4 TH/MM3 Eosinophils # (Auto) 0.2 TH/MM3 Basophils # (Auto) 0.1 TH/MM3 CBC Comment DIFF FINAL Differential Comment Blood Urea Nitrogen 10 MG/DL Creatinine 0.59 MG/DL Random Glucose 95 MG/DL Calcium Level 8.1 MG/DL Sodium Level 138 MEQ/L Potassium Level 3.8 MEQ/L Chloride Level 106 MEQ/L Carbon Dioxide Level 23.8 MEQ/L Anion Gap 8 MEQ/L Estimat Glomerular Filtration Rate 111 ML/MIN Human Chorionic Gonadotropin, Quant LESS THAN 1 MIU/ML MDM Medical Decision Making Medical Screen Exam Complete: Yes Emergency Medical Condition: Yes Medical Record Reviewed: Yes Interpretation(s) The CBC is essentially normal. The basic metabolic profile shows a calcium of 8.1 but is otherwise unremarkable. The beta-hCG is less than 1. The urinalysis shows slight turbidity, positive nitrite, many bacteria and culture is indicated. The wet prep shows positive clue cells and is negative for Trichomonas and yeast. Differential Diagnosis PID, bacterial vaginosis, monilial vaginitis, Trichomonas vaginitis, Narrative Course The patient requests something for the pain and anxiety. She will get Vistaril and ibuprofen for these. She appears to have bacterial vaginosis, urinary tract infection-cystitis, PID, anxiety. She needs to follow-up with a primary care physician. Diagnosis Primary Impression: PID (acute pelvic inflammatory disease) Additional Impressions: Bacterial vaginosis Anxiety Cystitis Additional Instructions: As we discussed, follow-up with a primary care physician. Do not drink alcohol on metronidazole. Med/Other Pt SpecificInfo: Prescription(s) given Scripts Metronidazole (Metronidazole) 500 Mg Tab 500 MG PO TID for Infection for 10 Days, TAB 0 Refills Prov: Neo Street MD 12/20/16 Hydroxyzine Pamoate (Vistaril) 25 Mg Cap 25 MG PO Q6H Y for ANXIETY, #30 CAP 0 Refills Prov: Neo Street MD 12/20/16 Ibuprofen (Ibuprofen) 600 Mg Tab 600 MG PO TID, #30 TAB 0 Refills Prov: Neo Street MD 12/20/16 Disposition: 01 DISCHARGE HOME Condition: Stable Neo Street MD Dec 19, 2016 21:50
[2016-12-19 22:26] LABS: BLOOD, URINE NEG (NEG); GLUCOSE,URINE NEG (NEG); KETONE, URINE NEG (NEG); NITRITE,URINE POS (NEG); PH, URINE 6.5 (5.0-8.5)
[2016-12-19 22:36] LABS: BACTERIA, URINE MANY /hpf; COMMENT (UR) CULTURE INDICATED; CULTURE IF INDICATED CULTURE INDICATED; RBC, URINE 0-2 /hpf (0-3); URINE COLOR YELLOW (YELLW/STRAW); WBC, URINE 0-2 /hpf (0-5)
[2016-12-19 22:45] VITALS: BP 142/89; PULSE 88; RESP 18; O2SAT 99
[2016-12-19 22:45] LABS: AUTOMATED NEUTROPHIL # 2.3 TH/MM3 (1.8-7.7); BASOPHIL # 0.1 TH/MM3 (0-0.2); BASOPHIL % 2.1 % (0.0-2.0); EOSINOPHIL # 0.2 TH/MM3 (0-0.4); EOSINOPHIL % 3.9 % (0.0-4.0); HEMATOCRIT 38.2 % (35.0-46.0); HEMO FLAGS DIFF FINAL; LYMPH % 48.4 % (9.0-44.0); MEAN CELL VOLUME 101.6 FL (80.0-100.0); MEAN CORPUSCULAR HEMOGLOBIN 34.3 PG (27.0-34.0); MEAN CORPUSCULAR HGB CONC 33.8 % (32.0-36.0); MONO % 6.9 % (0.0-8.0); NEUT % 38.7 % (16.0-70.0); PLATELET COUNT 204 TH/MM3 (150-450); RED BLOOD COUNT 3.76 MIL/MM3 (4.00-5.30); RED CELL DISTRIBUTION WIDTH 15.2 % (11.6-17.2)
[2016-12-19 22:55] LABS: CHLORIDE 106 MEQ/L (98-107); POTASSIUM 3.8 MEQ/L (3.5-5.1); SODIUM (NA) 138 MEQ/L (136-145)
[2016-12-19 22:58] LABS: ANION GAP 8 MEQ/L (5-15); BICARBONATE 23.8 MEQ/L (21.0-32.0)
[2016-12-19 22:59] LABS: BLOOD UREA NITROGEN 10 MG/DL (7-18)
[2016-12-19 23:02] LABS: GLOMERULAR FILTRATION RATE 111 ML/MIN (>89)
[2016-12-19 23:06] LABS: BETA HCG QUANT LESS THAN 1 MIU/ML (0-5)
[2016-12-20] MEDS ORDERED: IBUP-232 PO (00:11)
[2016-12-20] MEDS ORDERED: METR500T10 PO (00:11)
[2016-12-20] MEDS ORDERED: VIST25CA PO (00:11)
[2016-12-20] MEDS ORDERED: KETOROLAC TROMETHAMINE 60 MG/2 ML (IM) VIAL IVP ONE (00:15)
[2016-12-20] MEDS ORDERED: cefTRIAXone INJ 1,000 MG in SODIUM CHLORIDE 0.9% INJ 100 ML IV ONE (00:15)
[2016-12-20] MEDS ORDERED: AZITHROMYCIN PWD FOR SUSP 1 GM PACKET PO ONE (00:15)
[2016-12-20 01:00] VITALS: BP 139/77
[2016-12-20 01:29] LABS: CHLAMYDIA PCR NOT DETECTED (NOT DETECT); NEISSERIA PCR NOT DETECTED (NOT DETECT)
== END 2016-12-20 01:42 | disposition home or self-care (01) ==
LOC: PHED 20:17
DX: N73.0 Acute parametritis and pelvic cellulitis (principal); N76.0 Acute vaginitis; F41.9 Anxiety disorder, unspecified; N30.90 Cystitis, unspecified without hematuria
CPT/HCPCS: 80048; 81001; 84702; 85025; 87077; 87086; 87186; 87210; 87491; 87591; 96365; 96375; 99284; J0696; J1885

== ENCOUNTER 2017-02-12 09:15 | Emergency (ER) | payer MEDICAID ==
[~2017-02-12] VITALS: Ht 165.1 cm; Wt 57.9 kg
[~2017-02-12 09:15] MED LIST changes: -CIPR500T2 PO; -DIFL150T PO; +IBUP-232 PO; +METR1TAB76 PO; -ULTR50TA5 PO; +VIST25CA PO; -ZOFR4TAB3 SL
[2017-02-12 09:23] VITALS: BP 157/89; PULSE 105; RESP 18; TEMP 98; O2SAT 98
[2017-02-12] MEDS ORDERED: CLIN300C5 PO (09:59)
--- NOTE | 2017-02-12 10:02 | PD ---
HPI Chief Complaint: ENT Complaint Time Seen by Provider: 09:41 Travel History International Travel<30 days: No Contact w/Intl Traveler<30days: No Traveled to known affect area: No History of Present Illness HPI 46-year-old female presents to the emergency department with sore throat and subjective fever for approximately 1 day. States that she does not really have a cough just irritation in her pharynx. Patient has had subjective fevers but no actual temperature. Also has bilateral anterior neck soreness but full range of motion of neck. Patient denies hoarseness of voice, drooling , chest pain, shortness of breath, abdominal pain. States that she has had strep pharyngitis previously and this is what it feels like. Previously she has received clindamycin for treatment. No recent infections or antibiotic use. Denies chronic medical history or medication. PFSH Past Medical History Anxiety: Yes Depression: Yes Cancer: No Cardiovascular Problems: No Diabetes: No Diminished Hearing: No Endocrine: No Gastrointestinal Disorders: Yes GERD: No Genitourinary: No Immune Disorder: No Musculoskeletal: No Neurologic: No Psychiatric: No Reproductive: No Respiratory: No Immunizations Current: Yes Thyroid Disease: No Ulcer: No ?: Not : 4 Para: 3 Miscarriage: 1 Past Surgical History Section: Yes (X4) Genitourinary Surgery: Yes (CHOLEYCYSTECTOMY) Gynecologic Surgery: Yes (C-SECTIONS X4, PARTIAL HYSTERECTOMY) Hysterectomy: Yes Pacemaker: No Other Surgery: Yes Social History Alcohol Use: Yes (OCC) Tobacco Use: No (FORMER) Substance Use: No Allergies-Medications (Allergen,Severity, Reaction): Coded Allergies: penicillin G (Unverified Allergy, Severe, "My mother stated I swelled up and couldn't breathe", 02/12/17) Reported Meds & Prescriptions Reported Meds & Active Scripts Active Clindamycin (Clindamycin HCl) 300 Mg Cap 300 Mg PO TID 10 Days Review of Systems Except as stated in HPI: all other systems reviewed are Neg Physical Exam Narrative GENERAL: Well-nourished, well-developed patient. Anxious appearing. SKIN: Focused skin assessment warm/dry. HEAD: Normocephalic. EYES: No scleral icterus. No injection or drainage. Nose: Clear rhinorrhea THROAT: Mild pharyngeal injection, tonsillar exudates without tonsillar hypertrophy. Airway is patent. NECK: Supple, trachea midline. Mild anterior cervical lymphadenopathy CARDIOVASCULAR: Regular rate and rhythm without murmurs, gallops, or rubs. RESPIRATORY: Breath sounds equal bilaterally. No accessory muscle use. GASTROINTESTINAL: Abdomen soft, non-tender, nondistended. MUSCULOSKELETAL: No cyanosis, or edema. BACK: Nontender without obvious deformity. No CVA tenderness. Data Data Last Documented VS Vital Signs Date Time Temp Pulse Resp B/P (MAP) Pulse Ox O2 Delivery O2 Flow Rate FiO2 02/12/17 09:23 98.0 105 18 157/89 (111) 98 Orders Orders Ed Discharge Order (02/12/17 10:02) [facility] Medical Decision Making Medical Screen Exam Complete: Yes Emergency Medical Condition: Yes Differential Diagnosis Strep pharyngitis versus allergic pharyngitis versus viral pharyngitis Narrative Course 46-year-old female presents to the emergency department with sore throat and subjective fever for approximately 1 day. States that she does not really have a cough just irritation in her pharynx. Patient has had subjective fevers but no actual temperature. Also has bilateral anterior neck soreness but full range of motion of neck. Patient denies hoarseness of voice, drooling , chest pain, shortness of breath, abdominal pain. States that she has had strep pharyngitis previously and this is what it feels like. Previously she has received clindamycin for treatment. No recent infections or antibiotic use. Denies chronic medical history or medication. 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 As a result she has had a chronic postnasal drip and irritation of the pharynx. Physical exam demonstrates an anxious, nontoxic-appearing female. mild pharyngeal injection with posterior exudate. Anterior cervical lymphadenopathy Vital stable- mild tachycardia likely secondary to anxiety. Centor criteria- anterior cervical lymphadenopathy, tonsillar exudates, subjective fever, no significant cough Offered rapid strep, however, patient wants treatment anyway. Because of symptoms and history we'll treat for strep pharyngitis. she has allergy to penicillin so we'll treat with clindamycin. Advised patient to follow up with primary care physician within 2 days. Diagnosis Primary Impression: Strep pharyngitis Referrals: Primary Care Physician Additional Instructions: Use a water gargles at least twice daily. Medication as prescribed Tylenol or Motrin per package instructions if her symptoms persist or worsen return to the emergency department Follow up with your primary care physician within 2 days Scripts Clindamycin (Clindamycin) 300 Mg Cap 300 MG PO TID for Infection for 10 Days, CAP 0 Refills Prov: Mustapha Thao MD 02/12/17 Disposition: 01 DISCHARGE HOME Condition: Stable Massiel Nelson Feb 12, 2017 10:02
== END 2017-02-12 10:14 | disposition home or self-care (01) ==
LOC: PHEFT 09:15
DX: J02.0 Streptococcal pharyngitis (principal); R50.9 Fever, unspecified; R59.0 Localized enlarged lymph nodes; Z86.59 Personal history of other mental and behavioral disorders; Z87.19 Personal history of other diseases of the digestive system
CPT/HCPCS: 99283

== ENCOUNTER 2017-02-16 07:35 | Emergency (ER) | payer MEDICAID ==
[~2017-02-16] VITALS: Ht 165.1 cm; Wt 59.0 kg
[~2017-02-16 07:35] MED LIST changes: +CLIN300C5 PO; -IBUP-232 PO; -METR1TAB76 PO; -VIST25CA PO
[2017-02-16 07:37] VITALS: BP 133/94; PULSE 84; RESP 26; TEMP 98.4; O2SAT 99
[2017-02-16] MEDS ORDERED: CEPH-460 PO (08:12)
--- NOTE | 2017-02-16 08:14 | PD ---
HPI Chief Complaint: Back/ Neck Pain or Injury Time Seen by Provider: 08:13 Travel History International Travel<30 days: No Contact w/Intl Traveler<30days: No Traveled to known affect area: No History of Present Illness HPI 46 y f complaining of low back pain that started Wednesday. States she was helping her son move a moped twisted her back and felt a pull in her lower back particularly the right side. Stated her back pain is sharp with movement, constant and achy otherwise. Pain is moderate. Denies radiation of pain. Patient has taken ibuprofen and Aleve without relief. Patient denies fever, chills, loss of bowel or bladder function, saddle anesthesia, IV drug use. Patient has not taken any medication today for pain. PFSH Past Medical History Anxiety: Yes Depression: Yes Cancer: No Cardiovascular Problems: No Diabetes: No Diminished Hearing: No Endocrine: No Gastrointestinal Disorders: Yes GERD: No Genitourinary: No Immune Disorder: No Musculoskeletal: No Neurologic: No Psychiatric: No Reproductive: No Respiratory: No Immunizations Current: Yes Thyroid Disease: No Ulcer: No ?: Not : 4 Para: 3 Miscarriage: 1 Past Surgical History Section: Yes (X4) Genitourinary Surgery: Yes (CHOLEYCYSTECTOMY) Gynecologic Surgery: Yes (C-SECTIONS X4, PARTIAL HYSTERECTOMY) Hysterectomy: Yes Pacemaker: No Other Surgery: Yes Social History Alcohol Use: Yes (OCC) Tobacco Use: Yes (1 PPD) Substance Use: No Allergies-Medications (Allergen,Severity, Reaction): Coded Allergies: penicillin G (Unverified Allergy, Severe, "My mother stated I swelled up and couldn't breathe", 02/16/17) Reported Meds & Prescriptions Reported Meds & Active Scripts Active Ibuprofen 800 Mg Tab 800 Mg PO TID 5 Days Robaxin (Methocarbamol) 500 Mg Tab 500 Mg PO TID 3 Days Reported Keflex (Cephalexin) 500 Mg Capsule 500 Mg PO TID Review of Systems Except as stated in HPI: all other systems reviewed are Neg Physical Exam Narrative GENERAL: Well-nourished, well-developed patient. In mild distress SKIN: Focused skin assessment warm/dry. No ecchymosis or evidence of trauma. HEAD: Normocephalic. EYES: No scleral icterus. No injection or drainage. NECK: Supple, trachea midline. No JVD CARDIOVASCULAR: Regular rate and rhythm without murmurs, gallops, or rubs. RESPIRATORY: Breath sounds equal bilaterally. No accessory muscle use. MUSCULOSKELETAL: No cyanosis, or edema. BACK: No CVA tenderness. No rash. No point tenderness on palpation of the spine. TTP right PSIS with muscle tension. TTP just lateral to right lumbar region as well. Neurovascularly intact lower extremities Data Data Last Documented VS Vital Signs Date Time Temp Pulse Resp B/P (MAP) Pulse Ox O2 Delivery O2 Flow Rate FiO2 02/16/17 07:37 98.4 84 26 133/94 (107) 99 Orders Orders Acetamin-Hydrocod 325-5 Mg ([place] 5-325 (02/16/17 08:30) Prednisone (Deltasone) (02/16/17 08:30) Ketorolac Inj (Toradol Inj) (02/16/17 08:30) Orphenadrine Inj (Norflex Inj) (02/16/17 08:30) MDM Medical Decision Making Medical Screen Exam Complete: Yes Emergency Medical Condition: Yes Differential Diagnosis Lumbago versus muscle sprain versus muscle strain Narrative Course 46 y f complaining of low back pain that started Wednesday. States she was helping her son move a moped twisted her back and felt a pull in her lower back particularly the right side. Stated her back pain is sharp with movement, constant and achy otherwise. Pain is moderate. Denies radiation of pain. Patient has taken ibuprofen and Aleve without relief. Patient denies fever, chills, loss of bowel or bladder function, saddle anesthesia, IV drug use. Patient has not taken any medication today for pain. No red flag signs or symptoms. Vital signs stable Physical exam findings consistent with muscle spasms. Patient is tearful and in obvious distress during the exam. No neurovascular compromise. Patient given Solu-Medrol, hydrocodone, Toradol and Norflex for symptom relief. She will be discharged muscle relaxer and anti-inflammatory. Advised to follow-up with her primary care physician within 2-3 days Return for worsening symptoms Diagnosis Primary Impression: Muscle spasm Referrals: Primary Care Physician Additional Instructions: Perform light stretches of the lower back and legs, and alternate heat and ice packs. If you develop increased pain, weakness, fever, chills, or bowel or bladder issues, return to the ED for further treatment and evaluation. Follow up with your primary care physician in 2-3 days. Take medication as prescribed Scripts Ibuprofen (Ibuprofen) 800 Mg Tab 800 MG PO TID for Arthritis Pain for 5 Days, TAB 0 Refills Prov: Alessandro Anand MD 02/16/17 Methocarbamol (Robaxin) 500 Mg Tab 500 MG PO TID for Muscle Spasm for 3 Days, TAB 0 Refills Prov: Alessandro Anand MD 02/16/17 Disposition: 01 DISCHARGE HOME Condition: Stable Massiel Nelson Feb 16, 2017 08:14
[2017-02-16] MEDS ORDERED: ROBA500T PO (08:29)
[2017-02-16] MEDS ORDERED: IBUP1TAB7 PO (08:29)
[2017-02-16] MEDS ORDERED: KETOROLAC TROMETHAMINE 60 MG/2 ML (IM) VIAL IM ONE (08:30)
[2017-02-16] MEDS ORDERED: ORPHENADRINE INJ 60 MG/2 ML AMP IM ONE (08:30)
[2017-02-16] MEDS ORDERED: predniSONE 20 MG TAB PO ONE (08:30)
[2017-02-16] MEDS ORDERED: ACETAMINOPHEN/HYDROcodone 325 MG/5 MG TAB PO ONE (08:30)
== END 2017-02-16 08:58 | disposition home or self-care (01) ==
LOC: NEPD 07:35
DX: M62.830 Muscle spasm of back (principal); F41.9 Anxiety disorder, unspecified; F32.9 Major depressive disorder, single episode, unspecified; F17.200 Nicotine dependence, unspecified, uncomplicated; Z79.899 Other long term (current) drug therapy; Z88.0 Allergy status to penicillin
CPT/HCPCS: 96372; 99284; J1885; J2360; J7512

== ENCOUNTER 2017-03-23 17:04 | Emergency (ER) | payer MEDICAID ==
[~2017-03-23] VITALS: Ht 165.1 cm; Wt 57.9 kg
[~2017-03-23 17:04] MED LIST changes: +CEPH-460 PO; -CLIN300C5 PO; +IBUP1TAB7 PO; +ROBA500T PO
[2017-03-23 17:09] VITALS: BP 175/98; PULSE 103; RESP 16; TEMP 98.1; O2SAT 99
[2017-03-23] MEDS ORDERED: CEPH-460 PO (18:09)
[2017-03-23] MEDS ORDERED: FLUT1SPR5 EACH NARE (18:09)
--- NOTE | 2017-03-23 18:13 | PD ---
HPI Chief Complaint: ENT Complaint Time Seen by Provider: 18:03 Travel History International Travel<30 days: No Contact w/Intl Traveler<30days: No Traveled to known affect area: No History of Present Illness HPI 46-year-old female presents emergency Department with upper respiratory symptoms including sinus headache, congestion, pressure, postnasal drip, sore throat, and positive exposure to strep from her daughter. Had chills with no significant fever. She denies nausea, vomiting, or heartburn. No ear pain is reported. Patient has history of sinus trouble in the past. Headache pain is about a 7 out of 10. The pain is 7 out of 10 but no difficulty swallowing now. Patient states she is allergic to penicillin but has taken Keflex in the past. PFSH Past Medical History Medical History: Denies Significant Hx Anxiety: Yes Depression: Yes Cancer: No Cardiovascular Problems: No Diabetes: No Diminished Hearing: No Endocrine: No Gastrointestinal Disorders: Yes GERD: No Genitourinary: No Immune Disorder: No Musculoskeletal: No Neurologic: No Psychiatric: No Reproductive: No Respiratory: No Immunizations Current: Yes Thyroid Disease: No Ulcer: No Tetanus Vaccination: < 5 Years Influenza Vaccination: No ?: Not : 4 Para: 3 Miscarriage: 1 Past Surgical History Section: Yes (X4) Genitourinary Surgery: Yes (CHOLEYCYSTECTOMY) Gynecologic Surgery: Yes (C-SECTIONS X4, PARTIAL HYSTERECTOMY) Hysterectomy: Yes Pacemaker: No Other Surgery: Yes Social History Alcohol Use: Yes (OCC) Tobacco Use: Yes (1 PPD) Substance Use: No Allergies-Medications (Allergen,Severity, Reaction): Coded Allergies: penicillin G (Unverified Allergy, Severe, "My mother stated I swelled up and couldn't breathe", 03/23/17) Reported Meds & Prescriptions Reported Meds & Active Scripts Active Flonase Nasal [place] (Fluticasone Nasal [place]) 50 Mcg/Act [place] 100 Mcg EACH NARE BID Keflex (Cephalexin) 500 Mg Capsule 500 Mg PO TID 10 Days Review of Systems Except as stated in HPI: all other systems reviewed are Neg General / Constitutional: Positive: Chills, No: Fever Eyes: No: Visual changes HENT: Positive: Headaches, Sore Throat, Rhinitis, Rhinorrhea, Congestion, No: Vertigo, Lightheadedness, Nosebleed, Neck Stiffness, Neck Pain, Gingival Bleeding, Dental Difficulties, Ear Discharge, Earache Cardiovascular: No: Chest Pain or Discomfort Respiratory: Positive: Cough, No: Shortness of Breath, Wheezing, Sneezing Gastrointestinal: No: Nausea, Vomiting, Diarrhea, Abdominal Pain Genitourinary: No: Dysuria Musculoskeletal: No: Pain Skin: No Rash Neurologic: No: Weakness Psychiatric: No: Depression Endocrine: No: Polydipsia Hematologic/Lymphatic: No: Easy Bruising Physical Exam Narrative GENERAL: Patient appears ill but not septic. SKIN: Warm and dry. Normal color. Normal turgor. HEAD: Atraumatic. Normocephalic. Bilateral maxillary sinus tenderness with palpation and percussion. EYES: Pupils equal and round. No scleral icterus. No injection or drainage. ENT: No nasal bleeding or discharge. Mucous membranes pink and moist. TMs are dull bilaterally. Posterior pharynx is injected with cobblestoning and postnasal drip present. No significant lymphadenopathy or tonsillitis is noted. NECK: Trachea midline. Supple and nontender. CARDIOVASCULAR: Regular rate and rhythm. RESPIRATORY: No accessory muscle use. Clear to auscultation. Breath sounds equal bilaterally. MUSCULOSKELETAL: Extremities without clubbing, cyanosis, or edema. No obvious deformities. NEUROLOGICAL: Awake and alert. No obvious cranial nerve deficits. Motor grossly within normal limits. Five out of 5 muscle strength in the arms and legs. Normal speech. PSYCHIATRIC: Appropriate mood and affect; insight and judgment normal. Data Data Last Documented VS Vital Signs Date Time Temp Pulse Resp B/P (MAP) Pulse Ox O2 Delivery O2 Flow Rate FiO2 03/23/17 17:09 98.1 103 16 175/98 (123) 99 Orders Orders Ed Discharge Order (03/23/17 18:14) [facility] Medical Decision Making Medical Screen Exam Complete: Yes Emergency Medical Condition: Yes Differential Diagnosis Sinusitis. Postnasal drip. Pharyngitis. Possible strep. Narrative Course Patient is medically stable at time of exam. Patient will be treated with Keflex 500 mg 3 times a day 10 days. Patient also given Flonase nasal spray 2 sprays each nostril daily. Patient should take [id number] cough medicine, Tylenol or ibuprofen as needed. Patient follow-up with her primary as needed. Diagnosis Primary Impression: Sinusitis, acute Qualified Codes: J01.00 - Acute maxillary sinusitis, unspecified Referrals: Primary Care Physician Patient Instructions: General Instructions, Sinusitis (ED) Departure Forms: Work Release Enter return to work date: Mar 25, 2017 Additional Instructions: Patient is medically stable at time of exam. Patient will be treated with Keflex 500 mg 3 times a day 10 days. Patient also given Flonase nasal spray 2 sprays each nostril daily. Patient should take [id number] cough medicine, Tylenol or ibuprofen as needed. Patient follow-up with her primary as needed. Med/Other Pt SpecificInfo: Prescription(s) given Scripts Fluticasone Nasal [place] (Flonase Nasal [place]) 50 Mcg/Act [place] 100 MCG EACH NARE BID for Allergies, #1 BOTTLE 0 Refills Prov: Carolyn Murillo MD 03/23/17 Cephalexin (Keflex) 500 Mg Capsule 500 MG PO TID for Infection for 10 Days, CAP 0 Refills Prov: Carolyn Murillo MD 03/23/17 Disposition: 01 DISCHARGE HOME Condition: Stable Michael Fish Mar 23, 2017 18:13
== END 2017-03-23 18:27 | disposition home or self-care (01) ==
LOC: PHED 17:04 → PHEFT 18:27
DX: J01.00 Acute maxillary sinusitis, unspecified (principal); F17.210 Nicotine dependence, cigarettes, uncomplicated
CPT/HCPCS: 99283

== ENCOUNTER 2017-04-08 19:18 | Emergency (ER) | payer MEDICAID ==
[~2017-04-08 19:18] MED LIST changes: +FLUT1SPR5 EACH NARE; -IBUP1TAB7 PO; -ROBA500T PO
[2017-04-08 19:23] VITALS: BP 166/87; PULSE 103; RESP 20; TEMP 97.8; O2SAT 98
[2017-04-08 19:42] VITALS: TEMP 99.5
--- NOTE | 2017-04-08 19:55 | PD ---
HPI Chief Complaint: Cold / Flu Symptoms Time Seen by Provider: 19:31 Travel History International Travel<30 days: No Contact w/Intl Traveler<30days: No Traveled to known affect area: No History of Present Illness HPI Patient is a 46-year-old smoker presents emergency Department with continued cough and congestion. Patient states that she was here in March and record showed that in March 23 she was diagnosed with sinusitis, she is completed a course of antibiotics continues to have cough. Continues to smoke one pack per day and has done so for many years. Denies any fever denies any sputum production, versus dry cough. Symptoms are constant, over the past few weeks, context as above, associated signs symptoms as above. PFSH Past Medical History Anxiety: Yes Depression: Yes Cancer: No Cardiovascular Problems: No Diabetes: No Diminished Hearing: No Endocrine: No Gastrointestinal Disorders: Yes GERD: No Genitourinary: No Immune Disorder: No Musculoskeletal: No Neurologic: No Psychiatric: No Reproductive: No Respiratory: No Immunizations Current: Yes Thyroid Disease: No Ulcer: No Influenza Vaccination: No ?: Not : 4 Para: 3 Miscarriage: 1 Past Surgical History Section: Yes (X4) Cholecystectomy: Yes Genitourinary Surgery: Yes Gynecologic Surgery: Yes Hysterectomy: Yes Pacemaker: No Other Surgery: Yes Social History Alcohol Use: Yes (OCC) Tobacco Use: Yes (1 PPD) Substance Use: No Allergies-Medications (Allergen,Severity, Reaction): Coded Allergies: penicillin G (Unverified Allergy, Severe, "My mother stated I swelled up and couldn't breathe", 04/08/17) Reported Meds & Prescriptions Reported Meds & Active Scripts Active Proair Hfa 8.5 GM Inh (Albuterol Sulfate) 90 Mcg/Act Aer 1 Puff INH Q4H PRN 108 mcg/actuation Prednisone 20 Mg Tab 40 Mg PO DAILY 5 Days Tessalon Perles (Benzonatate) 100 Mg Cap 100 Mg PO TID PRN Azithromycin 250 Mg Tab 250 Mg PO DIRECTED Take 2 tabs (500 mg) on day 1 then 1 tab daily x 4 days. Flonase Nasal [place] (Fluticasone Nasal [place]) 50 Mcg/Act [place] 100 Mcg EACH NARE BID Keflex (Cephalexin) 500 Mg Capsule 500 Mg PO TID 10 Days Review of Systems Except as stated in HPI: all other systems reviewed are Neg Physical Exam Narrative GENERAL: Well-developed well-nourished no obvious distress SKIN: Focused skin assessment warm/dry. HEAD: Atraumatic. Normocephalic. EYES: Pupils equal and round. No scleral icterus. No injection or drainage. ENT: No nasal bleeding or discharge. Mucous membranes pink and moist. TMs clear bilaterally, oropharynx clear and moist, NECK: Trachea midline. No JVD. CARDIOVASCULAR: Regular rate and rhythm. No murmur appreciated. RESPIRATORY: No accessory muscle use. Breath sounds equal bilaterally. Good air entry bilaterally, there is a slight wheeze heard at bilateral bases. No retractions. GASTROINTESTINAL: Abdomen soft, non-tender, nondistended. Hepatic and splenic margins not palpable. MUSCULOSKELETAL: No obvious deformities. No clubbing. No cyanosis. No edema. NEUROLOGICAL: Awake and alert. No obvious cranial nerve deficits. Motor grossly within normal limits. Normal speech. PSYCHIATRIC: Appropriate mood and affect; insight and judgment normal. Data Data Last Documented VS Orders Orders Chest, Pa & Lat (04/08/17 ) Benzonatate (Tessalon) (04/08/17 20:00) Ed Discharge Order (04/08/17 20:34) MDM Medical Decision Making Medical Screen Exam Complete: Yes Emergency Medical Condition: Yes Differential Diagnosis Cough, bronchitis, pneumonia, smoking history. Narrative Course Patient roomed emerged permit, appears well, signs symptoms consistent with a viral bronchitis, chest x-ray negative. Last 24 hours Impressions Chest X-Ray 04/08/17 0000 Signed Impressions: Service Date/Time: April 20:20 - CONCLUSION: No acute disease. Que Vieira MD Discussed symptomatic management at home and follow-up the primary care physician, smoking cessation and smoking cessation as many many health benefits she is stable for discharge. Discussed return to ED criteria. Diagnosis Primary Impression: Cough Patient Instructions: Chronic Bronchitis (DC), Cigarette Smoking and Your Health (GEN), General Instructions, How to Stop Smoking (DC) Med/Other Pt SpecificInfo: Prescription(s) given Scripts Albuterol 8.5 GM Inh (Proair Hfa 8.5 GM Inh) 90 Mcg/Act Aer 1 PUFF INH Q4H Y for SHORTNESS OF BREATH, #1 INHALER 0 Refills 108 mcg/actuation Prov: Alessandro Anand MD 04/08/17 Prednisone (Prednisone) 20 Mg Tab 40 MG PO DAILY for 5 Days, #10 TAB 0 Refills Prov: Alessandro Anand MD 04/08/17 Benzonatate (Tessalon Perles) 100 Mg Cap 100 MG PO TID Y for COUGH, #30 CAP 0 Refills Prov: Alessandro Anand MD 04/08/17 Azithromycin (Azithromycin) 250 Mg Tab 250 MG PO DIRECTED for Infection, #6 TAB 0 Refills Take 2 tabs (500 mg) on day 1 then 1 tab daily x 4 days. Prov: Alessandro Anand MD 04/08/17 Disposition: 01 DISCHARGE HOME Condition: Stable Alessandro Anand MD Apr 08, 2017 19:55
[2017-04-08] MEDS ORDERED: BENZONATATE 100 MG CAP PO ONE (20:00)
[2017-04-08] MEDS ORDERED: BENZ100 PO (20:34)
[2017-04-08] MEDS ORDERED: PRED20 PO (20:34)
[2017-04-08] MEDS ORDERED: ALBUAER3 INH (20:34)
[2017-04-08] MEDS ORDERED: AZIT250T3 PO (20:34)
--- NOTE | 2017-04-08 20:37 | RADRPT ---
EXAM DATE/TIME: 04/08/2017 20:20 [facility] COMPARISON: CHEST PA & LAT, December 18, 2014, 8:25. INDICATIONS : Flu like symptoms for four days. Short of breath and productive cough. MEDICAL HISTORY : Smoker. SURGICAL HISTORY : Hysterectomy. section. ENCOUNTER: Initial ACUITY: 4 - 6 days PAIN SCORE: 0/10 LOCATION: Bilateral chest FINDINGS: PA and lateral views of the chest demonstrate the lungs to be symmetrically aerated without evidence of mass, infiltrate or effusion. The cardiomediastinal contours are unremarkable. Osseous structure s are intact. CONCLUSION: No acute disease. Que Vieira MD on April 08, 2017 at 20:35 Board Certified Radiologist. This report was verified electronically.
[2017-04-08 20:58] VITALS: BP 150/78
== END 2017-04-08 21:04 | disposition home or self-care (01) ==
LOC: PHED 19:18
DX: R05 Cough (principal); R09.81 Nasal congestion; F17.200 Nicotine dependence, unspecified, uncomplicated; F41.9 Anxiety disorder, unspecified; Z79.899 Other long term (current) drug therapy; Z88.0 Allergy status to penicillin
CPT/HCPCS: 71046; 99284

== ENCOUNTER 2017-05-20 16:58 | Emergency (ER) | payer MEDICAID ==
[~2017-05-20] VITALS: Ht 165.1 cm; Wt 59.0 kg
[~2017-05-20 16:58] MED LIST changes: +ALBUAER3 INH; +AZIT250T3 PO; +BENZ100 PO; +PRED20 PO
[2017-05-20 17:04] VITALS: BP 124/90; PULSE 89; RESP 16; TEMP 97.7; O2SAT 100
--- NOTE | 2017-05-20 18:12 | PD ---
HPI Chief Complaint: Musculoskeletal Complaint Time Seen by Provider: 17:53 Travel History International Travel<30 days: No Contact w/Intl Traveler<30days: No Traveled to known affect area: No History of Present Illness HPI 47-year-old female presents to the emergency room for evaluation of body aches, fatigue, mildly productive cough, and congestion for the past 3 days. Cough is productive of green sputum. She has also developed right lower back pain that radiates down the right leg for the past 3 days. She denies trauma or injury but lifts heavy things at work all day. She has taken Aleve once with significant improvement in symptoms. She has not been taking any cold or flu symptoms medication. She denies any chronic medical conditions or daily medications. Denies history of sciatica. Denies fever, chills, nausea, vomiting, saddle anesthesia, loss of bowel or bladder control, lower extremity paresthesias, IV drug use, weight loss, or night sweats. PFSH Past Medical History Anxiety: Yes Depression: Yes Cancer: No Cardiovascular Problems: No Diabetes: No Diminished Hearing: No Endocrine: No Gastrointestinal Disorders: Yes GERD: No Genitourinary: No Immune Disorder: No Musculoskeletal: No Neurologic: No Psychiatric: No Reproductive: No Respiratory: No Immunizations Current: Yes Thyroid Disease: No Ulcer: No ?: Not : 5 Para: 4 Miscarriage: 1 Past Surgical History Section: Yes (X4) Cholecystectomy: Yes Genitourinary Surgery: Yes Gynecologic Surgery: Yes Hysterectomy: Yes (PARTIAL) Pacemaker: No Other Surgery: Yes Social History Alcohol Use: Yes (OCC) Tobacco Use: Yes (1 PPD) Substance Use: No Allergies-Medications (Allergen,Severity, Reaction): Coded Allergies: penicillin G (Unverified Allergy, Severe, "My mother stated I swelled up and couldn't breathe", 05/20/17) Reported Meds & Prescriptions Reported Meds & Active Scripts Active Robaxin (Methocarbamol) 750 Mg Tab 750 Mg PO Q8HR Ibuprofen 600 Mg Tab 600 Mg PO Q8HR PRN Review of Systems Except as stated in HPI: all other systems reviewed are Neg Physical Exam Narrative GENERAL: Well-nourished, well-developed female no acute distress. Afebrile. Ambulatory. SKIN: Focused skin assessment warm/dry. HEAD: Normocephalic. EYES: No scleral icterus. No injection or drainage. NECK: Supple, trachea midline. No JVD or lymphadenopathy. CARDIOVASCULAR: Regular rate and rhythm without murmurs, gallops, or rubs. RESPIRATORY: Breath sounds equal bilaterally. No accessory muscle use. No crackles, rales, wheezes, or rhonchi. BACK: Nontender without obvious deformity. No CVA tenderness. Tenderness to palpation of the right SI joint. Data Data Last Documented VS Vital Signs Date Time Temp Pulse Resp B/P (MAP) Pulse Ox O2 Delivery O2 Flow Rate FiO2 05/20/17 17:45 20 05/20/17 17:04 97.7 89 124/90 (101) 100 Orders Orders Ketorolac Inj (Toradol Inj) (05/20/17 18:15) Orphenadrine Inj (Norflex Inj) (05/20/17 18:15) Dexamethasone Inj (Decadron Inj) (05/20/17 18:15) Influenzae A/B Antigen (05/20/17 18:04) Ed Discharge Order (05/20/17 19:04) [facility] Medical Decision Making Medical Screen Exam Complete: Yes Emergency Medical Condition: Yes Medical Record Reviewed: Yes Differential Diagnosis Bronchitis, pneumonia, influenza, muscle spasm, sciatica, back strain Narrative Course 47-year-old female presents to the emergency room for evaluation of 2 separate complaints. First complaint is cough, congestion, body aches, and fatigue that has been ongoing for the past 3 days. Second complaint is right-sided low back pain that radiates down the right lower extremity for the past 3 days. Patient is afebrile and well-appearing in the emergency room. Denies red flag symptoms. No midline tenderness. No trauma or injury to the back. Denies fevers. Lung sounds clear and equal bilaterally. Vital signs stable. Patient is ambulatory. She was given Toradol, Decadron, and Norflex in the emergency room and reports significant improvement in symptoms.. I suspect her severe cough has caused her to throw out her back. Influenza is negative. Given duration of symptoms and physical exam, this is likely upper respiratory infection. Patient was told to continue [id number] cough and cold medications but given prescriptions for Robaxin and ibuprofen. Told to follow up with her primary care physician or return for worsening symptoms. She understands and agrees to plan. Diagnosis Primary Impression: Upper respiratory infection Qualified Codes: J00 - Acute nasopharyngitis [common cold] Additional Impression: Sciatica Qualified Codes: M54.31 - Sciatica, right side Referrals: Primary Care Physician Additional Instructions: Rest and drink plenty of fluids. Take Robaxin as directed, as needed for pain. Take ibuprofen with food as directed, as needed for pain. Apply ice to the affected area for 20 minutes at a time, as needed for pain and swelling. Follow-up with a primary care physician. Return to the emergency room for worsening symptoms. Scripts Methocarbamol (Robaxin) 750 Mg Tab 750 MG PO Q8HR for Muscle Spasm, #15 TAB 0 Refills Prov: Yaz Chase MD 05/20/17 Ibuprofen (Ibuprofen) 600 Mg Tab 600 MG PO Q8HR Y for PAIN, #15 TAB 0 Refills Prov: Yaz Chase MD 05/20/17 Disposition: 01 DISCHARGE HOME Condition: Stable Khushi Mohamud May 20, 2017 18:12
[2017-05-20] MEDS ORDERED: ORPHENADRINE INJ 60 MG/2 ML AMP IM ONE (18:15)
[2017-05-20] MEDS ORDERED: DEXAMETHASONE SOD PHOS 4 MG/ML VIAL IM ONE (18:15)
[2017-05-20] MEDS ORDERED: KETOROLAC TROMETHAMINE 60 MG/2 ML (IM) VIAL IM ONE (18:15)
[2017-05-20] MEDS ORDERED: IBUP-232 PO (18:54)
[2017-05-20] MEDS ORDERED: ROBA750T PO (18:54)
== END 2017-05-20 19:11 | disposition home or self-care (01) ==
LOC: PHED 16:58 → PHEFT 19:11
DX: J06.9 Acute upper respiratory infection, unspecified (principal); M54.31 Sciatica, right side; F41.9 Anxiety disorder, unspecified; F32.9 Major depressive disorder, single episode, unspecified; F17.210 Nicotine dependence, cigarettes, uncomplicated; Z88.0 Allergy status to penicillin
CPT/HCPCS: 87804; 96372; 99283; J1100; J1885; J2360

== ENCOUNTER 2017-06-30 16:28 | Emergency (ER) | payer MEDICAID ==
[~2017-06-30] VITALS: Ht 165.1 cm; Wt 58.7 kg
[~2017-06-30 16:28] MED LIST changes: -ALBUAER3 INH; -AZIT250T3 PO; -BENZ100 PO; -CEPH-460 PO; -FLUT1SPR5 EACH NARE; +IBUP-232 PO; -PRED20 PO; +ROBA750T PO
[2017-06-30 16:35] VITALS: BP 147/70; PULSE 104; RESP 16; TEMP 97.9; O2SAT 97
[2017-06-30 16:53] LABS: BILIRUBIN, URINE NEG (NEG); BLOOD, URINE TRACE (NEG); GLUCOSE,URINE NEG (NEG); KETONE, URINE NEG (NEG); NITRITE,URINE NEG (NEG); URINE COLOR YELLOW (YELLW/STRAW); URINE LEUKOCYTE ESTERASE NEG (NEG)
[2017-06-30 17:03] LABS: BACTERIA, URINE FEW /hpf; WBC, URINE 0-2 /hpf (0-5)
--- NOTE | 2017-06-30 17:45 | PD ---
HPI Chief Complaint: Welt Wheeler Problem/Complaint Time Seen by Provider: 17:13 Travel History International Travel<30 days: No Contact w/Intl Traveler<30days: No Traveled to known affect area: No History of Present Illness HPI The patient was seen and examined in the presence of the nurse. She complains of vaginal discharge. Duration 3 days. Severity is moderate. Has some pelvic pain as well. She has had a partial hysterectomy. No fever. She has had unprotected sex recently. No alleviating factors. No exacerbating factors. PFSH Past Medical History Anxiety: Yes Depression: Yes Cancer: No Cardiovascular Problems: No Diabetes: No Diminished Hearing: No Endocrine: No Gastrointestinal Disorders: Yes GERD: No Genitourinary: No Immune Disorder: No Implanted Vascular Access Dvce: No Musculoskeletal: No Neurologic: No Psychiatric: No Reproductive: No Respiratory: No Immunizations Current: Yes Thyroid Disease: No Ulcer: No ?: Not : 5 Para: 4 Miscarriage: 1 Past Surgical History Section: Yes (X4) Cholecystectomy: Yes Genitourinary Surgery: Yes Gynecologic Surgery: Yes Hysterectomy: Yes Pacemaker: No Other Surgery: Yes Social History Alcohol Use: Yes (OCC) Tobacco Use: Yes (1 PPD) Substance Use: No Allergies-Medications (Allergen,Severity, Reaction): Coded Allergies: penicillin G (Unverified Allergy, Severe, "My mother stated I swelled up and couldn't breathe", 06/30/17) Reported Meds & Prescriptions Reported Meds & Active Scripts Active Levaquin (Levofloxacin) 500 Mg Tablet 500 Mg PO DAILY Doxycycline Hyclate 100 Mg Cap 100 Mg PO BID Flagyl (Metronidazole) 500 Mg Tab 500 Mg PO TID Review of Systems General / Constitutional: No: Fever Eyes: No: Visual changes HENT: No: Headaches Cardiovascular: No: Chest Pain or Discomfort Respiratory: No: Shortness of Breath Gastrointestinal: No: Abdominal Pain Genitourinary: Positive: Pelvic Pain, Discharge, No: Dysuria Musculoskeletal: No: Pain Skin: No Rash Neurologic: No: Weakness Psychiatric: No: Depression Endocrine: No: Polydipsia Hematologic/Lymphatic: No: Easy Bruising Physical Exam Narrative GENERAL: Well-nourished, well-developed patient in no apparent distress. SKIN: Focused skin assessment reveals no rash and nodules. Skin is Warm and dry. HEAD: Atraumatic. Normocephalic. EYES: Pupils equal and round. No scleral icterus. No injection or drainage. ENT: No nasal bleeding or discharge. Mucous membranes pink and moist. NECK: Trachea midline. No JVD. CARDIOVASCULAR: Regular rate and rhythm. No murmur appreciated. RESPIRATORY: No accessory muscle use. Clear to auscultation. Breath sounds equal bilaterally. GASTROINTESTINAL: Abdomen soft, non-tender, nondistended. Hepatic and splenic margins not palpable. MUSCULOSKELETAL: No obvious deformities. No clubbing. No cyanosis. No edema. NEUROLOGICAL: Awake and alert. No obvious cranial nerve deficits. Motor grossly within normal limits. Normal speech. PSYCHIATRIC: Appropriate mood and affect; insight and judgment normal. Pelvic: Follow-up has whitish evans discharge. There is positive cervical motion tenderness. Wet prep sent. I was going to obtain a GC and chlamydia but she refused to tolerate any more of the pelvic exam and backed away and that was the end of it Data Data Last Documented VS Vital Signs Date Time Temp Pulse Resp B/P (MAP) Pulse Ox O2 Delivery O2 Flow Rate FiO2 06/30/17 16:35 97.9 104 16 147/70 (95) 97 Orders Orders Urinalysis - C+S If Indicated (06/30/17 16:38) Wet Prep Profile (06/30/17 17:30) Labs Laboratory Tests Test 06/30/17 16:38 06/30/17 17:34 Urine Collection Type CLEAN CATCH Urine Color YELLOW Urine Turbidity SL CLOUDY Urine pH 6.0 Urine Specific [place] 1.025 Urine Protein NEG mg/dL Urine Glucose (UA) NEG mg/dL Urine Ketones NEG mg/dL Urine Occult Blood TRACE Urine Nitrite NEG Urine Bilirubin NEG Urine Urobilinogen 0.2 MG/DL Urine Leukocyte Esterase NEG Urine WBC 0-2 /hpf Urine Squamous Epithelial Cells 3-5 /hpf Urine Bacteria FEW /hpf Microscopic Urinalysis Comment CULT NOT INDICATED Clue Cells (Wet Prep) PRESENT Vaginal Trichomonas (Wet Prep) NONE SEEN Vaginal Yeast (Wet Prep) NONE SEEN MDM Medical Decision Making Medical Screen Exam Complete: Yes Emergency Medical Condition: Yes Medical Record Reviewed: Yes Differential Diagnosis PID, cervicitis, vaginitis Narrative Course I have reviewed the patient's electronic medical record. She is a frequent visitor to the ER for minor complaints Patient has had a hysterectomy but still has a cervix. Wet prep shows clue cells which I treated with Flagyl Patient reports that she cannot tolerate any penicillin based antibiotics or she "will " Giving her a combination of Levaquin and doxycycline Told her that is not proper treatment for gonorrhea Diagnosis Primary Impression: PID (acute pelvic inflammatory disease) Additional Impression: Bacterial vaginosis Additional Instructions: The patient was advised to follow up with their physician and return if they worsen. Med/Other Pt SpecificInfo: Prescription(s) given Scripts Levofloxacin (Levaquin) 500 Mg Tablet 500 MG PO DAILY for Infection, #7 TAB 0 Refills Prov: Mustapha Thao MD 06/30/17 Doxycycline Hyclate (Doxycycline Hyclate) 100 Mg Cap 100 MG PO BID for Infection, #14 CAP 0 Refills Prov: Mustapha Thao MD 06/30/17 Metronidazole (Flagyl) 500 Mg Tab 500 MG PO TID for Infection, #20 TAB 0 Refills Prov: Mustapha Thao MD 06/30/17 Disposition: 01 DISCHARGE HOME Condition: Stable Mustapha Thao MD Jun 30, 2017 17:45
[2017-06-30] MEDS ORDERED: DOXY100C PO (18:22)
[2017-06-30] MEDS ORDERED: METR-1 PO (18:22)
[2017-06-30] MEDS ORDERED: LEVA500T33 PO (18:22)
== END 2017-06-30 18:39 | disposition home or self-care (01) ==
LOC: PHED 16:28
DX: N73.0 Acute parametritis and pelvic cellulitis (principal); N76.0 Acute vaginitis; F41.9 Anxiety disorder, unspecified; F32.9 Major depressive disorder, single episode, unspecified; F17.200 Nicotine dependence, unspecified, uncomplicated
CPT/HCPCS: 81001; 87210; 99283

== ENCOUNTER 2017-09-03 12:24 | Emergency (ER) | payer MEDICAID ==
[~2017-09-03] VITALS: Ht 165.1 cm; Wt 58.0 kg
[~2017-09-03 12:24] MED LIST changes: +DOXY100C PO; -IBUP-232 PO; +LEVA500T33 PO; +METR-1 PO; -ROBA750T PO
[2017-09-03 12:28] VITALS: BP 161/77; PULSE 95; RESP 18; TEMP 98.4; O2SAT 99
--- NOTE | 2017-09-03 12:39 | PD ---
HPI Chief Complaint: Musculoskeletal Complaint Time Seen by Provider: 12:34 Travel History International Travel<30 days: No Contact w/Intl Traveler<30days: No Traveled to known affect area: No History of Present Illness HPI 47-year-old female presents emergency department complaining of right elbow pain that started 2-3 days ago after hitting elbow going through a doorway. Says that she has a history of dislocation of this elbow and she wants to be sure that it is not broken as a result of the injury a few days ago. Says her pain is located along the joint line that is worse with complete extension, flexion, along with rotation of the forearm. Says the pain decreases with rest. Says she noticed some swelling on the medial and lateral aspect of elbow which is very tender to palpation according to the patient. Her pain is mild to moderate in severity and nonradiating. She denies numbness tingling. Denies weakness. She has no other complaints today. PFSH Past Medical History Anxiety: Yes Depression: Yes Cancer: No Cardiovascular Problems: No Diabetes: No Diminished Hearing: No Endocrine: No Gastrointestinal Disorders: Yes GERD: No Genitourinary: No Immune Disorder: No Implanted Vascular Access Dvce: No Musculoskeletal: No Neurologic: No Psychiatric: No Reproductive: No Respiratory: No Immunizations Current: Yes Thyroid Disease: No Ulcer: No ?: Not : 5 Para: 4 Miscarriage: 1 Past Surgical History Section: Yes (X4) Cholecystectomy: Yes Genitourinary Surgery: Yes Gynecologic Surgery: Yes Hysterectomy: Yes Pacemaker: No Other Surgery: Yes Social History Alcohol Use: Yes (OCC) Tobacco Use: Yes (1 PPD) Substance Use: No Allergies-Medications (Allergen,Severity, Reaction): Coded Allergies: penicillin G (Unverified Allergy, Severe, "My mother stated I swelled up and couldn't breathe", 09/03/17) Reported Meds & Prescriptions Reported Meds & Active Scripts Active No Active Prescriptions or Reported Medications Review of Systems Except as stated in HPI: all other systems reviewed are Neg Physical Exam Narrative GENERAL: Well-nourished, well-developed patient, in NAD SKIN: Focused skin assessment warm/dry. No rashes or lesions. HEAD: Normocephalic. Atraumatic. EYES: No scleral icterus. No injection or drainage. THROAT: Airway is patent. NECK: Supple, trachea midline. No JVD or lymphadenopathy. No meningismus. CARDIOVASCULAR: Regular rate and rhythm without murmurs, gallops, or rubs. RESPIRATORY: Breath sounds equal bilaterally. No accessory muscle use. No wheezes, rales, or rhonchi MUSCULOSKELETAL: No cyanosis, or edema. Right elbow-pain noted to complete extension and flexion along with rotation, tenderness palpation along the joint line with accompanying edema, focused along the medial lateral epicondyles. Neurovascular intact No tenderness to palpation of the shoulder or wrist. BACK: Nontender without obvious deformity. No CVA tenderness. Data Data Last Documented VS Vital Signs Date Time Temp Pulse Resp B/P (MAP) Pulse Ox O2 Delivery O2 Flow Rate FiO2 09/03/17 12:28 98.4 95 18 161/77 (105) 99 Orders Orders Elbow, Complete (4 Vws) (09/03/17 ) Ct Elbow W/O Contrast (09/03/17 ) Ed Discharge Order (09/03/17 14:28) MDM Medical Decision Making Medical Screen Exam Complete: Yes Emergency Medical Condition: Yes Differential Diagnosis Right elbow contusion, bursitis, cellulitis, fracture, osteonecrosis, avascular necrosis, sprain, strain Narrative Course 47-year-old female presents emergency department complaining of right elbow pain that started 2-3 days ago after hitting elbow going through a doorway. Says that she has a history of dislocation of this elbow and she wants to be sure that it is not broken. Says her pain is located along the joint line that is worse with complete extension and flexion along with rotation of the forearm. Says the pain decreases with rest. Says she noticed some swelling which is very tender to palpation according to the patient. Her pain is mild to moderate in severity and nonradiating. She denies numbness tingling. Denies weakness. She has no other complaints today. Of note, patient says that her pain was worse yesterday and is improving however , she would like further evaluation to ensure no fracture. Vital signs are stable. Physical exam findings consistent with a fracture versus bursitis. X-ray ordered to rule out fracture. X-ray could not rule out fracture. I discussed with the patient my findings and advised on a CT. Patient agreed. Last Impressions Upper Extremity CT 09/03/17 0000 Signed Impressions: CONCLUSION: 1. Ossific structure along the lateral epicondyle with well-corticated margins . This may be related to an ununited ossification center or old healed fracture fragment. 2. No acute fracture or malalignment. Elbow X-Ray 09/03/17 0000 Signed Impressions: CONCLUSION: Questionable abnormal lateral epicondyle. Correlation suggested exclude a fract ure. The CT is consistent with patient's history of dislocation of the elbow. I advised that she may continue to have pain for several days and it may take up to 1-2 weeks before her pain is completely resolved. Elbow was Bo wrapped for comfort. She should follow-up with her primary care physician and consider internal controls specialist for further evaluation if her pain persists. Diagnosis Primary Impression: Contusion of elbow, right Qualified Codes: S50.01XA - Contusion of right elbow, initial encounter Referrals: Orthopedist Patient Instructions: Arthralgia (ED), General Instructions Departure Forms: Tests/Procedures, Work Release Enter return to work date: Sep 04, 2017 Additional Instructions: Use ice or heat for symptom relief. If no contraindications, you may use Tylenol or Motrin per package instructions for your pain. Elevate the joint above the heart to reduce swelling. You may use compression with Bo wrap or similar to reduce swelling. If symptoms persist or worsen, return to the emergency department. Follow up with your primary care physician within 2 days. Scripts No Active Prescriptions or Reported Meds Disposition: 01 DISCHARGE HOME Condition: Stable Massiel Nelson Sep 03, 2017 12:39
--- NOTE | 2017-09-03 13:08 | RADRPT ---
EXAM DATE: 09/03/2017 1:04 PM EDT AGE/SEX: 47 years / Female INDICATIONS: Right elbow pain post hitting on table. CLINICAL DATA: This is the patient's initial encounter. Patient reports that signs and symptoms have been present for 3 days and indicates a pain score of 8/10. MEDICAL/SURGICAL HISTORY: . Prior right elbow dislocation None. COMPARISON: No prior [place] exams available for comparison. FINDINGS: There is no joint effusion present. Alignment anatomic. Minimal degenerative changes are present abou t the lateral epicondyle. I cannot entirely exclude a fracture. Correlation is suggested. CONCLUSION: Questionable abnormal lateral epicondyle. Correlation suggested exclude a fracture. Electronically signed by: Mynor Thomas MD 09/03/2017 1:07 PM EDT
--- NOTE | 2017-09-03 14:22 | RADRPT ---
EXAM DATE: 09/03/2017 2:07 PM EDT AGE/SEX: 47 years / Female INDICATIONS: Trauma. Hit right elbow on doorway 2 days ago. Right elbow pain. Abnormal x-ray demo nstrating questionable lateral epicondyle fracture. CLINICAL DATA: This is the patient's initial encounter. Patient reports that signs and symptoms have been present for 2 days and indicates a pain score of 7/10. MEDICAL/SURGICAL HISTORY: . Elbow dislocation. Cholecystectomy. Hysterectomy. secti on. RADIATION DOSE: 13.18 CTDI (mGy) COMPARISON: [facility], ELBOW RIGHT COMPLETE (4 VWS), 09/03/2017. . TECHNIQUE: Multiple contiguous axial images were acquired using a multi-row detector CT scanner. Mu ltiplanar reconstruction was performed in the sagittal and coronal planes. Using automated exposure control and adjustment of the mA and/or kV according to patient size, radiation dose was kept as low as reasonably achievable to obtain optimal diagnostic quality images. FINDINGS: Bones: The bony structures about the elbow are in normal alignment. The distal humerus and proximal radius and ulna are intact. No acute fracture is seen. There is an ossific structure along the lat eral epicondyles measuring approximately 1 cm in greatest diameter with well corticated margins. Joints: No significant arthropathy or bony hypertrophy is seen. Soft Tissues: Grossly unremarkable. Other: No foreign bodies seen. CONCLUSION: 1. Ossific structure along the lateral epicondyle with well-corticated margins. This may be related to an ununited ossification center or old healed fracture fragment. 2. No acute fracture or malalignment. Electronically signed by: Nickolas Mera MD 09/03/2017 2:21 PM EDT
== END 2017-09-03 14:47 | disposition home or self-care (01) ==
LOC: PHEFT 12:24
DX: S50.01XA Contusion of right elbow, initial encounter (principal); W22.8XXA Striking against or struck by other objects, initial encounter; F41.9 Anxiety disorder, unspecified; F32.9 Major depressive disorder, single episode, unspecified; F17.200 Nicotine dependence, unspecified, uncomplicated
CPT/HCPCS: 73080; 73200; 99284